=== PATIENT | female | born 1980 | race Asian ===

== ENCOUNTER 2016-05-03 19:15 | Emergency (ER) | payer MEDICAID, OTHER ==
[~2016-05-03] VITALS: Ht 172.7 cm; Wt 79.0 kg
[2016-05-03 19:19] VITALS: Ht 172.7 cm; Wt 79.0 kg
[2016-05-03] MEDS ORDERED: BEN25 PO (19:29)
[2016-05-03] MEDS ORDERED: ACET500C5 PO (19:29)
[2016-05-03] MEDS ORDERED: CETI10CA PO (19:29)
--- NOTE | 2016-05-03 19:37 | ERD ---
ER Documentation Chief Complaint Date/Time DATE: 05/03/16 TIME: 19:35 Chief Complaint nasal congestion,cold symptoms, HERNANDEZ,13 wks HPI 36-year-old female presents here in emergency department for complaints of sneezing nasal congestion and runny nose with clear nasal discharge for the last one week. Patient denies any purulent discharge. Patient denies any fever or chills. Patient has been having on and off headache with this, throbbing pain , for/10 scale, calm anemia symptoms. Patient denies any caution is better wheezing. Patient's approximately 13 weeks , 1 para 2 0. Patient denies any vaginal bleeding abdominal pain flank pain, or any related complaints. She did not take medications of symptoms. ROS All systems reviewed and are negative except as per history of present illness. Medications Home Meds Active Scripts Acetaminophen* (Tylophen*) 500 Mg Capsule, 1 CAP PO Q6H Y for PAIN AND OR ELEVATED TEMP, #20 CAP Prov:INGE LOBO. ESCROW CLERK 05/03/16 Cetirizine Hcl* (Zyrtec*) 10 Mg Capsule, 10 MG PO DAILY, #30 TAB.CHEW Prov:INGE LOBO. ESCROW CLERK 05/03/16 Diphenhydramine Hcl* (Benadryl*) 25 Mg Cap, 25 MG PO Q6 Y for NASAL CONGESTION, #30 TAB Prov:INGE LOBO. ESCROW CLERK 05/03/16 Allergies Allergies: Coded Allergies: No Known Allergy (Unverified , 05/03/16) PMhx/Soc Medical and Surgical Hx: pt denies Medical Hx, pt denies Surgical Hx FmHx Family History: diabetes Physical Exam Vitals Vital Signs Date Time Temp Pulse Resp B/P Pulse Ox O2 Delivery O2 Flow Rate FiO2 05/03/16 19:19 98.2 106 18 118/75 99 Physical Exam GENERAL: The patient is well developed and appropriate for usual state of health, in no apparent distress. CHEST: Clear to auscultation bilaterally. There are no rales, wheezes or rhonchi. HEENT: Atraumatic. Ears: Normal tympanic membrane, no erythema or bulging. No ear canal swelling. No ear discharge. Nose: Pale boggy naris with clear nasal discharge. Throat: oropharynx clear. No tonsillar swelling or tonsillar exudates. No lymphadenopathy. HEART: Regular rate and rhythm. No murmurs, clicks, rubs or gallops. No S3 or S4. ABDOMEN: Soft, nontender and nondistended. Good bowel sounds. No rebound or guarding. No gross peritonitis. No gross organomegaly or masses. No Mancia sign or McBurney point tenderness. BACK: No midline or flank tenderness. EXTREMITIES: Equal pulses bilaterally. There is no peripheral clubbing, cyanosis or edema. No focal swelling or erythema. Full range of motion. Grossly neurovascularly intact. NEURO: Alert and oriented. Cranial nerves 2-12 intact. Motor strength in all 4 extremities with 5/5 strength. Sensation grossly intact. Normal speech and gait. SKIN: There is no apparent rash or petechia. The skin is warm and dry. HEMATOLOGIC AND LYMPHATIC: There is no evidence of excessive bruising or lymphedema. No gross cervical, axillary, or inguinal lymphadenopathy. Procedures/MDM Medical decision making: Patient's symptoms most active consistent with allergic rhinitis, no symptoms of acute bacterial infection at this time. No symptoms of sepsis at this time. No related symptoms at this time. Patient upper spine is hemodynamically stable. Patient was given for Tylenol Zyrtec Benadryl, all safe for , category B, patient is advised to follow-up with primary care doctor in 1-2 days for reevaluation of symptoms. Patient was advised to return to emergency department for any worsening symptoms. Departure Diagnosis: Primary Impression: Allergic rhinitis Allergic rhinitis seasonality: unspecified seasonality Allergic rhinitis trigger: unspecified Qualified Code: J30.9 - Allergic rhinitis, unspecified allergic rhinitis trigger, unspecified rhinitis seasonality Condition: Stable Patient Instructions: Allergic Rhinitis INGE LOBO NP May 03, 2016 19:37
== END 2016-05-03 19:29 | disposition home or self-care (01) ==
LOC: E/R 19:15
DX: O99.511 Diseases of the respiratory system complicating pregnancy, first trimester (principal); J30.9 Allergic rhinitis, unspecified; Z3A.13 13 weeks gestation of pregnancy
CPT/HCPCS: 99283

== ENCOUNTER 2016-09-19 13:33 | Outpatient (CLI) | payer MEDICAID ==
[~2016-09-19] VITALS: Ht 172.7 cm; Wt 92.8 kg
[~2016-09-19 13:33] MED LIST: ACET500C5 PO; BEN25 PO; CETI10CA PO
[2016-09-19 13:44] VITALS: Ht 172.7 cm; Wt 92.8 kg
[2016-09-19 13:45] VITALS: BP 120/70; PULSE 93; RESP 20
[2016-09-19] MEDS ORDERED: PRENAT PO (13:50)
--- NOTE | 2016-09-19 15:57 | RADRPT ---
PROCEDURE: OB ultrasound for biophysical profile CLINICAL INDICATION: Biophysical profile. . TECHNIQUE: Multiple sonographic images of the pelvis were obtained. Transabdominal views are obta ined. COMPARISON: None FINDINGS: Single intrauterine gestation. Presentation: Cephalic. Placenta: Left lateral No evidence of placental abruption. No evidence of placenta previa. Partially visualized bilateral pelviectasis. breathing movement = 2/2 tone = 2/2 motion = 2/2 HARRISON = 2/2 HARRISON = 17.5 cm heart rate: 144 beats per minute IMPRESSION: Single intrauterine gestation. Biophysical profile 11/03 Partially visualized bilateral pelviectasis. Recommend complete anatomic survey for further evaluat ion. RPTAT: AADD .Alejandro Mata MD, Date Time Electronically viewed and signed by .Alejandro Mata MD, on 09/19/2016 15:56 .B/
--- NOTE | 2016-09-19 16:34 | PN ---
Triage Information Date/Time Weeks of Gestation 33+ : 1 Para: 0 Diabetes: gestational Hypertention: none Objective Vital Signs Date Time Temp Pulse Resp B/P Pulse Ox O2 Delivery O2 Flow Rate FiO2 09/19/16 13:45 98.3 93 20 120/70 Room Air Heart Rate: 140's Assessment/Plan NST reactive,BPP 8/8 --->RTH in 2 days for another NST BPP --->precautions discussed with patient VIOLA HURTADO M.D. Sep 19, 2016 16:34
--- NOTE | 2016-09-19 16:53 | TRIAGE ---
OB Triage Datetime Report Generated by CPN: 09/19/2016 16:53 Datetime: 09/19/2016 15:00 Labor Evaluation Frequency: 0 Duration (sec)2399: 0 Heart Rate FHR Baseline Rate: 135 Monitor Mode: External US Variability: Moderate 6-25 bpm Accelerations: 15X15 Decelerations: None Category: Category I Pain Presence: None/Denies Vaginal Exam Membrane Status: Intact Datetime: 09/19/2016 14:02 Time of Arrival: 09/19/2016 13:30 EGA: 33.0 Arrived By: Ambulatory Arrived From: Home Chief Complaint: follow up NST AND BPP FOR GESTATIONAL GDM (DIET CONTROLLED) Movement: Present Contractions: Denies/Absent Rupture of Membranes: Denies Vaginal Bleeding: None Vaginal Discharge: Denies Recent Sexual Intercouse: Denies Abdominal Trauma: Not Applicable Patient Complaints: Other Time Provider Notified: 09/19/2016 16:00 Provider Notified: ABUSELEME Initial Plan: NST, BPP, HARRISON, SEE DR Datetime: 09/19/2016 13:56 Stage of : OB Triage Assessment Type: Triage Maternal Assessment Level of Consciousness: Fully Conscious DTR's/Clonus: DTRs 2+; No Clonus Headache: Denies Blurred Vision: No Respiratory Effort: Unlabored; Regular Rhythm; Equal Expansion Breath Sounds, Left: Clear and Equal Breath Sounds, Right: Clear and Equal Nausea/Vomiting: Denies RUQ Epigastric Pain: Denies Lower Extremities Edema: None Upper Extremities Edema: None Facial Edema: None Temperature Route: Oral Bedside Blood Glucose: 104 (Annotations: post breakfast per pt) Fall Risk Assessment History of Falling: (0) No Secondary Diagnosis: (0) No Ambulatory Aid: (0) Bedrest/Nurse Assist IV Therapy: (0) No Gait: (0) Normal/Bedrest/Immobile Mental Status: (0) Oriented to Own Ability Fall Score: 0 Fall Risk Score Definition: No Risk: No action required Labor Evaluation Frequency: 0 Monitor Mode: External Duration (sec)2399: 0 Resting Tone [place]: Relaxed Contraction Comments: denies uc's Heart Rate FHR Baseline Rate: 130 Monitor Mode: External US Variability: Moderate 6-25 bpm Accelerations: 15X15 Decelerations: None Category: Category I Pain Assessment Pain Scale: 0
== END 2016-09-19 16:35 | disposition home or self-care (01) ==
LOC: L-D 13:33 → OBT 13:33 → L-D 13:34 → OBT 16:35
PROVIDERS: ATTEND Obstetrics & Gynecology
DX: O24.419 Gestational diabetes mellitus in pregnancy, unspecified control (principal); O09.513 Supervision of elderly primigravida, third trimester; Z3A.33 33 weeks gestation of pregnancy
CPT/HCPCS: 76818; Z7500; G0463

== ENCOUNTER 2016-09-26 12:01 | Outpatient (CLI) | payer MEDICAID ==
[~2016-09-26] VITALS: Ht 172.7 cm; Wt 92.2 kg
[~2016-09-26 12:01] MED LIST changes: +PRENAT PO
[2016-09-26 12:13] VITALS: Ht 172.7 cm; Wt 92.2 kg
[2016-09-26] MEDS ORDERED: FER325 PO (12:13)
[2016-09-26] MEDS ORDERED: FOLI-49 PO (12:13)
[2016-09-26 12:14] VITALS: BP 112/76; PULSE 100; RESP 18
--- NOTE | 2016-09-26 13:15 | RADRPT ---
PROCEDURE: OB ultrasound for biophysical profile CLINICAL INDICATION: Poor tone. TECHNIQUE: Multiple sonographic images of the pelvis were obtained. Transabdominal views of the g ravid uterus are available for review. The images were reviewed on a PACS workstation. COMPARISON: None FINDINGS: breathing movement = 2/2 tone = 2/2 motion = 2/2 HARRISON = 2/2 HARRISON = 12.5 cm Single live intrauterine with cardiac activity of 144 bpm. position is cephal ic. The placenta is posterior. IMPRESSION: 1. Single live intrauterine gestation. 2. Biophysical profile = 8/8. 3. HARRISON = 12.5 cm. RPTAT: HH .Sandra Guzman MD, MD Date Time Electronically viewed and signed by .Sandra Guzman MD, on 09/26/2016 13:15 .G/
--- NOTE | 2016-09-26 13:29 | TRIAGE ---
OB Triage Datetime Report Generated by CPN: 09/26/2016 13:29 Datetime: 09/26/2016 13:00 Stage of : OB Triage Maternal Assessment Level of Consciousness: Fully Conscious Labor Evaluation Frequency: NONE NOTED Monitor Mode: External Resting Tone [place]: Relaxed Heart Rate FHR Baseline Rate: 145 Monitor Mode: External US Variability: Moderate 6-25 bpm Accelerations: Prolonged Decelerations: None Category: Category I Pain Assessment Pain Scale: 0 Pain Goal: 0 Vaginal Exam Membrane Status: Intact Vaginal Bleeding: None Datetime: 09/26/2016 12:11 Assessment Type: Triage Maternal Assessment Level of Consciousness: Fully Conscious DTR's/Clonus: DTRs 2+; No Clonus Headache: Denies Blurred Vision: No Respiratory Effort: Unlabored; Regular Rhythm; Equal Expansion Breath Sounds, Left: Clear and Equal Breath Sounds, Right: Clear and Equal Nausea/Vomiting: Denies RUQ Epigastric Pain: Denies Lower Extremities Edema: None Degree: None Upper Extremities Edema: None Degree: None Facial Edema: None Fall Risk Assessment History of Falling: (0) No Secondary Diagnosis: (0) No Ambulatory Aid: (0) Bedrest/Nurse Assist IV Therapy: (0) No Gait: (0) Normal/Bedrest/Immobile Mental Status: (0) Oriented to Own Ability Fall Score: 0 Fall Risk Score Definition: No Risk: No action required Datetime: 09/26/2016 12:10 Time of Arrival: 09/26/2016 11:50 EGA: 34.0 Arrived By: Ambulatory Arrived From: Home Chief Complaint: pt here for nst/bpp for gdm Movement: Present Contractions: Denies/Absent Rupture of Membranes: Denies Vaginal Bleeding: None Vaginal Discharge: Denies Recent Sexual Intercouse: Denies Abdominal Trauma: Not Applicable Patient Complaints: None Time Provider Notified: 09/26/2016 13:20 Provider Notified: BRYANT Initial Plan: NST/BPP Datetime: 09/26/2016 12:07 Monitor Mode: External Monitor Mode: External US Datetime: 09/19/2016 14:02 EGA: 33.0 Datetime: 09/19/2016 13:56 Fall Score: 0 Fall Risk Score Definition: No Risk: No action required
--- NOTE | 2016-09-26 13:29 | PN ---
Triage Information Date/Time Weeks of Gestation 34+wks : 1 Para: 0 Diabetes: gestational Diabetes management: diet controlled Hypertention: none Objective Vital Signs Date Time Temp Pulse Resp B/P Pulse Ox O2 Delivery O2 Flow Rate FiO2 09/26/16 12:14 97.9 100 18 112/76 96 Room Air Exam NST Reactive BPP 11/03 Assessment/Plan precautions discussed Return to Hospital in 2-3 days for NST BPP VIOLA HURTADO M.D. Sep 26, 2016 13:29
== END 2016-09-26 13:39 | disposition home or self-care (01) ==
LOC: L-D 12:01 → OBT 12:01
PROVIDERS: ATTEND Obstetrics & Gynecology
DX: O24.410 Gestational diabetes mellitus in pregnancy, diet controlled (principal); Z3A.34 34 weeks gestation of pregnancy
CPT/HCPCS: 76818; Z7500; G0463

== ENCOUNTER 2016-10-10 12:24 | Outpatient (CLI) | END 2016-10-10 14:45 | disposition home or self-care (01) | DX: O24.410 Gestational diabetes mellitus in pregnancy, diet controlled (principal); Z3A.35 35 weeks gestation of pregnancy | CPT/HCPCS: 76818; Z7500 ==

== ENCOUNTER 2016-10-12 10:44 | Outpatient (CLI) | payer MEDICAID ==
--- NOTE | 2016-10-10 16:01 | PN ---
Triage Information Date/Time Weeks of Gestation 36+ GDM : 1 Para: 0 Diabetes: gestational Diabetes management: diet controlled Objective Heart Rate: 140's Contractions: None Assessment/Plan Reactive NST BPP 11/03 --->Return to hospital in 2 days for another NST BPP -->PO hydration recommended VIOLA HURTADO M.D. Oct 10, 2016 16:01
[~2016-10-12] VITALS: Ht 172.7 cm; Wt 93.2 kg
[~2016-10-12 10:44] MED LIST changes: -ACET500C5 PO; -BEN25 PO; -CETI10CA PO; +FER325 PO; +FOLI-49 PO
[2016-10-12 11:09] VITALS: BP 126/66; PULSE 87; RESP 18; Ht 172.7 cm; Wt 93.2 kg
--- NOTE | 2016-10-12 12:39 | RADRPT ---
PROCEDURE: OB ultrasound for biophysical profile CLINICAL INDICATION: Low amniotic fluid index. TECHNIQUE: Multiple sonographic images of the pelvis were obtained. Transabdominal view of the gr avid uterus are available for review. The images were reviewed on a PACS workstation. COMPARISON: 10/10/2016 FINDINGS: breathing movement = 2/2 tone = 2/2 motion = 2/2 Quantitative amniotic fluid volume = 2/2 HARRISON = 9.8 cm Single live intrauterine with cardiac activity at 137 beats per minute. There is a lateral placenta without previa. IMPRESSION: 1. Single living intrauterine gestation in cephalic position. 2. Biophysical profile = 8/8. 3. HARRISON = 9.8 cm. RPTAT: AACC Physician Tierra Date Time Electronically viewed and signed by Physician Tierra on 10/12/2016 12:39 /
--- NOTE | 2016-10-12 12:57 | TRIAGE ---
OB Triage Datetime Report Generated by CPN: 10/12/2016 12:56 Datetime: 10/12/2016 11:48 Stage of : OB Triage Maternal Assessment Level of Consciousness: Fully Conscious Labor Evaluation Frequency: NONE Monitor Mode: External Resting Tone [place]: Relaxed Heart Rate FHR Baseline Rate: 145 Monitor Mode: External US Variability: Moderate 6-25 bpm Accelerations: 15X15 Decelerations: None Category: Category I Pain Assessment Pain Scale: 0 Pain Goal: 3 Vaginal Exam Membrane Status: Intact Vaginal Bleeding: None Datetime: 10/12/2016 11:07 Assessment Type: Triage Maternal Assessment Level of Consciousness: Fully Conscious DTR's/Clonus: DTRs 2+; No Clonus Headache: Denies Blurred Vision: No Respiratory Effort: Unlabored; Regular Rhythm; Equal Expansion Breath Sounds, Left: Clear and Equal Breath Sounds, Right: Clear and Equal Nausea/Vomiting: Denies RUQ Epigastric Pain: Denies Lower Extremities Edema: None Degree: None Upper Extremities Edema: None Degree: None Facial Edema: None Fall Risk Assessment History of Falling: (0) No Secondary Diagnosis: (0) No Ambulatory Aid: (0) Bedrest/Nurse Assist IV Therapy: (0) No Gait: (0) Normal/Bedrest/Immobile Mental Status: (0) Oriented to Own Ability Fall Score: 0 Fall Risk Score Definition: No Risk: No action required Datetime: 10/12/2016 11:06 Time of Arrival: 10/12/2016 10:41 EGA: 36.2 Arrived By: Ambulatory Arrived From: Home Chief Complaint: pt here for repeat nst/bpp for LOW HARRISON Movement: Present Contractions: Denies/Absent Rupture of Membranes: Denies Vaginal Bleeding: None Vaginal Discharge: Denies Recent Sexual Intercouse: Denies Abdominal Trauma: Not Applicable Patient Complaints: None Time Provider Notified: 10/12/2016 10:45 Provider Notified: ABUSLEME Initial Plan: NST/BPP Datetime: 10/12/2016 11:02 Monitor Mode: External Monitor Mode: External US Datetime: 10/10/2016 12:28 Fall Score: 0 Fall Risk Score Definition: No Risk: No action required Datetime: 10/10/2016 12:27 EGA: 36.0 Datetime: 10/03/2016 11:00 EGA: 35.0 Datetime: 09/26/2016 12:11 Fall Score: 0 Fall Risk Score Definition: No Risk: No action required Datetime: 09/26/2016 12:10 EGA: 34.0 Datetime: 09/19/2016 14:02 EGA: 33.0 Datetime: 09/19/2016 13:56 Fall Score: 0 Fall Risk Score Definition: No Risk: No action required
== END 2016-10-12 13:12 | disposition home or self-care (01) ==
LOC: OBT 10:44 → L-D 10:45 → OBT 13:12
PROVIDERS: ATTEND Obstetrics & Gynecology
DX: O24.419 Gestational diabetes mellitus in pregnancy, unspecified control (principal); Z3A.36 36 weeks gestation of pregnancy
CPT/HCPCS: 76818; Z7500; G0463

== ENCOUNTER 2016-10-17 12:35 | Outpatient (CLI) | payer MEDICAID ==
[~2016-10-17] VITALS: Ht 172.7 cm; Wt 93.3 kg
[2016-10-17 13:05] VITALS: Ht 172.7 cm; Wt 93.3 kg
[2016-10-17 13:06] VITALS: BP 116/72; PULSE 88; RESP 20
--- NOTE | 2016-10-17 13:46 | RADRPT ---
PROCEDURE: US biophysical profile. CLINICAL INDICATION: Low amniotic fluid volume. TECHNIQUE: Multiple sonographic images of the uterus were obtained. The images were revi ewed on a PACS workstation. COMPARISON: No prior studies are available for comparison. FINDINGS: There is a single live intrauterine gestation. heart rate is 137 beats per minute. The position is cephalic. The placenta is left lateral grade 1 with no abruption or previa. The HARRISON is 9.1 cm. (Normal = 5-20 cm.) Breathing Movement: 2 Gross Body Movement: 2 Tone: 2 Qualitative Amniotic Fluid Volume: 2 TOTAL: 8 IMPRESSION: 1. The biophysical score is 8/8. RPTAT: QQ .Andriy Velazquez MD, MD Date Time Electronically viewed and signed by .Andriy Velazquez MD, on 10/17/2016 13:45 .R/
--- NOTE | 2016-10-17 14:30 | PN ---
Triage Information Date/Time Weeks of Gestation 37 weeks of gestation : 1 Para: 0 Diabetes: none Hypertention: none Objective Vital Signs Date Time Temp Pulse Resp B/P Pulse Ox O2 Delivery O2 Flow Rate FiO2 10/17/16 13:06 98.3 88 20 116/72 Room Air Heart Rate: 140's Contractions: None Results/Medications Imaging Results PROCEDURE: US biophysical profile. CLINICAL INDICATION: Low amniotic fluid volume. TECHNIQUE: Multiple sonographic images of the uterus were obtained. The images were reviewed on a PACS workstation. COMPARISON: No prior studies are available for comparison. FINDINGS: There is a single live intrauterine gestation. heart rate is 137 beats per minute. The position is cephalic. The placenta is left lateral grade 1 with no abruption or previa. The HARRISON is 9.1 cm. (Normal = 5-20 cm.) Breathing Movement: 2 Gross Body Movement: 2 Tone: 2 Qualitative Amniotic Fluid Volume: 2 TOTAL: 8 IMPRESSION: 1. The biophysical score is 8/8. RPTAT: QQ .Andriy Velazquez MD, MD Date Time Electronically viewed and signed by .Andriy Velazquez MD, MD on 10/17/2016 13:45 .R/ CC: JESS CA MD Assessment/Plan Patient at 37 weeks of gestation Here for HARRISON check- HARRISON 9 Patient should increase hydration F/U with her OBGYN in 2 days Patient should return next week for repeat HARRISON MICHEAL THOMAS MD Oct 17, 2016 14:30
== END 2016-10-17 14:15 | disposition home or self-care (01) ==
LOC: L-D 12:35 → OBT 12:35
PROVIDERS: ATTEND Obstetrics & Gynecology
DX: Z36 Encounter for antenatal screening of mother (principal)
CPT/HCPCS: 76818; Z7500; G0463

== ENCOUNTER 2016-10-24 13:02 | Outpatient (CLI) | payer MEDICAID ==
--- NOTE | 2016-10-24 13:49 | RADRPT ---
PROCEDURE: US OB biophysical profile. CLINICAL INDICATION: decreased movements, GDM TECHNIQUE: Multiple sonographic images of the pelvis were obtained. The images were reviewed on a PACS workstation. COMPARISON: 10/17 FINDINGS: There is a single viable intrauterine gestation. Cardiac activity is present with 159 beats per min kimo. There is a vertex presentation. The placenta is left lateral. There is no evidence of placental abruption. There is a normal amount of amniotic fluid with an HARRISON = 11.0 cm. Biophysical profile: movement 2/2 tone 2/2. breathing 2/2 HARRISON 2/2 Total 11/03 RPTAT: AA . IMPRESSION: Normal biophysical profile. . .Ethan Andrew MD, MD Date Time Electronically viewed and signed by .Ethan Andrew MD, on 10/24/2016 13:49 .S/
--- NOTE | 2016-10-24 14:41 | PN ---
Triage Information Date/Time Weeks of Gestation Patient is 1 para 0 at 38 weeks of gestation : 1 Para: 0 Hypertention: none Additional information Patient is here for NST and biophysical profile Patient reports positive movement, no vaginal bleeding, no contractions, no leaking fluid Objective Heart Rate: 140's Heart Rate Comments NST is reactive Contractions: None Results/Medications Imaging Results PROCEDURE: US OB biophysical profile. CLINICAL INDICATION: decreased movements, GDM TECHNIQUE: Multiple sonographic images of the pelvis were obtained. The images were reviewed on a PACS workstation. COMPARISON: 10/17 FINDINGS: There is a single viable intrauterine gestation. Cardiac activity is present with 159 beats per minute. There is a vertex presentation. The placenta is left lateral. There is no evidence of placental abruption. There is a normal amount of amniotic fluid with an HARRISON = 11.0 cm. Biophysical profile: movement 2/2 tone 2/2. breathing 2/2 HARRISON 2/2 Total 11/03 RPTAT: AA . IMPRESSION: Normal biophysical profile. . .Ethan Andrew MD, MD Date Time Electronically viewed and signed by .Ethan Andrew MD, MD on 10/24/2016 13: 49 .S/ CC: JESS CA MD Assessment/Plan Patient is a 38 weeks of gestation here for NST and biophysical profile NST is reactive Biophysical profile 8 out of 8 Patient was instructed on kick counts and counseled to increase p.o. hydration Patient scheduled to see her own [employer] REPRESENTATIVE in 2 days She is scheduled to be sectioned on October 30, 2016 MICHEAL THOMAS MD Oct 24, 2016 14:41
--- NOTE | 2016-10-24 15:04 | TRIAGE ---
OB Triage Datetime Report Generated by CPN: 10/24/2016 15:04 Datetime: 10/24/2016 14:25 Labor Evaluation Frequency: NONE Monitor Mode: External Pattern: Normal: <= 5 Contractions in 10 Minutes Resting Tone [place]: Relaxed Contraction Comments: IRRITABILITIES Heart Rate FHR Baseline Rate: 145 Monitor Mode: External US FHR Baseline Changes: No Baseline Change Variability: Moderate 6-25 bpm Accelerations: 15X15 Decelerations: None Category: Category I Pain Assessment Pain Scale: 0 Pain Presence: None/Denies Pain Type: N/A Datetime: 10/24/2016 13:41 Monitor Mode: External US Datetime: 10/24/2016 13:33 Labor Evaluation Frequency: 2-16 Monitor Mode: External Duration (sec)2399: 50-70 Quality: Mild Pattern: Normal: <= 5 Contractions in 10 Minutes Resting Tone [place]: Relaxed Contraction Comments: PT REPORTS THAT SHE DOES NOT FEEL ANY CONTRACTIONS Heart Rate FHR Baseline Rate: 145 FHR Baseline Changes: No Baseline Change Variability: Moderate 6-25 bpm Accelerations: 15X15 Decelerations: Variable Comments: Vx1 Pain Assessment Pain Scale: 0 Pain Presence: None/Denies Pain Type: N/A Datetime: 10/24/2016 13:15 Stage of : OB Triage Assessment Type: Triage Maternal Assessment Level of Consciousness: Fully Conscious DTR's/Clonus: DTRs 2+; No Clonus Headache: Denies Blurred Vision: No Respiratory Effort: Unlabored; Regular Rhythm; Equal Expansion Breath Sounds, Left: Clear and Equal Breath Sounds, Right: Clear and Equal Nausea/Vomiting: Denies RUQ Epigastric Pain: Denies Lower Extremities Edema: None Upper Extremities Edema: None Facial Edema: None Temperature Route: Axillary Fall Risk Assessment History of Falling: (0) No Secondary Diagnosis: (0) No Ambulatory Aid: (0) Bedrest/Nurse Assist IV Therapy: (0) No Gait: (0) Normal/Bedrest/Immobile Mental Status: (0) Oriented to Own Ability Fall Score: 0 Fall Risk Score Definition: No Risk: No action required Pain Assessment Pain Scale: 0 Pain Presence: None/Denies Pain Type: N/A Pain Goal: 3 Datetime: 10/24/2016 13:09 Time of Arrival: 10/24/2016 13:00 EGA: 38.0 Arrived By: Ambulatory Arrived From: Home Chief Complaint: Pt here for repeat NST/BPP for GDM Movement: Present Contractions: Denies/Absent Rupture of Membranes: Denies Vaginal Bleeding: None Recent Sexual Intercouse: Denies Abdominal Trauma: Not Applicable Patient Complaints: None Time Provider Notified: 10/24/2016 14:10 Provider Notified: DR. THOMAS Datetime: 10/17/2016 14:05 Time of Arrival: 10/24/2016 13:00 EGA: 38.0 Arrived By: Ambulatory Arrived From: Home Datetime: 10/17/2016 14:00 Stage of : OB Triage Datetime: 10/17/2016 13:08 Maternal Assessment Level of Consciousness: Fully Conscious DTR's/Clonus: DTRs 1+ Headache: Denies Blurred Vision: No Respiratory Effort: Unlabored Breath Sounds, Left: Clear and Equal Breath Sounds, Right: Clear and Equal Nausea/Vomiting: Denies RUQ Epigastric Pain: Denies Facial Edema: None Labor Evaluation Frequency: 0 Monitor Mode: External Resting Tone [place]: Relaxed Heart Rate FHR Baseline Rate: 135 Monitor Mode: External US FHR Baseline Changes: No Baseline Change Variability: Moderate 6-25 bpm Accelerations: 15X15 Decelerations: None Category: Category I Pain Assessment Pain Scale: 0 Vaginal Exam Membrane Status: Intact Datetime: 10/17/2016 13:01 Time of Arrival: 10/17/2016 12:33 EGA: 37.0 Arrived By: Ambulatory Arrived From: Home Chief Complaint: F/U NST BPP Movement: Present Contractions: Denies/Absent Contractions: 0 Rupture of Membranes: Denies Vaginal Bleeding: None Vaginal Discharge: Denies Abdominal Trauma: Not Applicable Patient Complaints: None Provider Notified: ABUSLEME Initial Plan: NST Datetime: 10/12/2016 11:07 Fall Score: 0 Fall Risk Score Definition: No Risk: No action required Datetime: 10/12/2016 11:06 EGA: 36.2 Datetime: 10/10/2016 12:28 Fall Score: 0 Fall Risk Score Definition: No Risk: No action required Datetime: 10/10/2016 12:27 EGA: 36.0 Datetime: 10/03/2016 11:00 EGA: 35.0 Datetime: 09/26/2016 12:11 Fall Score: 0 Fall Risk Score Definition: No Risk: No action required Datetime: 09/26/2016 12:10 EGA: 34.0 Datetime: 09/19/2016 14:02 EGA: 33.0 Datetime: 09/19/2016 13:56 Fall Score: 0 Fall Risk Score Definition: No Risk: No action required
== END 2016-10-24 14:46 | disposition home or self-care (01) ==
LOC: OBT 13:02 → L-D 13:03 → OBT 14:46
PROVIDERS: ATTEND Obstetrics & Gynecology
DX: O36.8130 Decreased fetal movements, third trimester, not applicable or unspecified (principal); Z3A.38 38 weeks gestation of pregnancy
CPT/HCPCS: 76818

== ENCOUNTER 2016-10-27 16:52 | Outpatient (CLI) | payer MEDICAID ==
[~2016-10-27] VITALS: Ht 172.7 cm; Wt 94.1 kg
[2016-10-27 17:33] VITALS: Ht 172.7 cm; Wt 94.1 kg
[2016-10-27 17:34] VITALS: BP 108/63; PULSE 86; RESP 20
--- NOTE | 2016-10-27 17:59 | RADRPT ---
PROCEDURE: Biophysical profile CLINICAL INDICATION: distress, decreased movements. TECHNIQUE: Color and dobbs-scale ultrasound images of an intrauterine gestation were obtained. COMPARISON: October 24, 2016 FINDINGS: A single live intrauterine gestation is identified in cephalic position with an estimated hear t rate of 131 beats per minute. The placenta is located laterally to the left. The cervix is obscu red by head shadows. No evidence of abruption identified. HARRISON is 11.6 cm. movement 2/2. tone 2/2. breathing movement 2/2. Qualitative AFV 2/2 Total biophysical profile 11/03 IMPRESSION: 11/03 biophysical profile. RPTAT: AA .Nithin Chiang MD, Date Time Electronically viewed and signed by .Nithin Chiang MD, MD on 10/27/2016 17:58 .P/
--- NOTE | 2016-10-27 18:42 | CONS ---
Date/Time of Note Date/Time of Note DATE: 10/27/16 TIME: 18:34 Consultation Date/Type/Reason Admit Date/Time October 27, 2016 OB triage consult Reason for Consultation This patient is 36 years old 1 para 0 with estimated date of confinement of October 30, 2016 which measures 39 weeks and 4 days now. Came to triage complaining of low movement. She had gestational diabetes mellitus with diet-controlled. Her blood glucose fasting was 86 1 and hour after lunch was 114 her lab work during this basically normal blood type B+ hepatitis B surface antigen HIV GBS rubella chlamydia and gonorrhea were all negative Her general vital signs are normal with blood pressure 108/63, pulse rate 86, respiration 18 temp temperature 98.1,,, and oxygen saturation of the blood at room temperature was 97% heart rate currently is around 140 Constitutional: No chills, No diaphoresis, No disoriented, No febrile, No improved, No no complaints, No other, No poor po, No requiring IVF, No requiring O2 Eyes: No discharge, No no complaints, No other, No pain, No redness, No visual change ENT: No bleeding, No congestion, No discharge, No dysphagia, No no complaints, No other, No pain, No sore throat Respiratory: No cough, No no complaints, No other, No pain, No pleuritic pain, No shortness of breath, No sputum, No wheezing Cardiovascular: No chest pain, No edema, No lightheadedness, No no complaints, No orthopenea, No other, No palpitations, No paroxysmal nocturnal dyspnea Gastrointestinal: No blood, No constipation, No decreased appetite, No diarrhea , No flatus, No nausea, No no complaints, No other, No pain, No passing stool, No vomiting Genitourinary: other (She did not have any contractions for this reason the pelvic examination was not performed), No bleeding, No discharge, No dysuria, No flank pain, No hematuria, No no complaints Musculoskeletal: No back pain, No bone/joint pain, No neck pain, No no complaints, No other, No restricted range of motion, No swelling Skin: No bruising, No erythema, No laceration, No no complaints, No other, No pruritis, No rash, No skin lesions Neurologic: No confusion, No dizziness, No focal-weakness, No headache, No no complaints, No other, No seizure, No syncope Endocrine: No dry skin, No no complaints, No other, No polydypsia, No polyuria , No temp intolerance Additional Comments On ultrasound study the report was single live intrauterine gestation in cephalic presentation with heart tone of 131 bpm her amniotic fluid index was 11.6 and the biophysical profile was reported 11/03 Disposition with this positive finding patient was discharged to be seen by Dr. Rosio Cr in her office and she is asked to do the kick count and return in the labor delivery room in case of labor End of dictation Social History Smoking Status: Never smoker Exam/Review of Systems Vital Signs Vitals Vital Signs Date Time Temp Pulse Resp B/P Pulse Ox O2 Delivery O2 Flow Rate FiO2 10/27/16 17:34 98.1 86 20 108/63 97 Room Air DAMON FALK MD Oct 27, 2016 18:42
--- NOTE | 2016-10-27 18:45 | TRIAGE ---
OB Triage Datetime Report Generated by CPN: 10/27/2016 18:44 Datetime: 10/27/2016 18:15 Stage of : OB Triage Datetime: 10/27/2016 18:03 Labor Evaluation Frequency: 0 Monitor Mode: External Duration (sec)2399: 0 Quality: Mild Resting Tone Garden: Relaxed Heart Rate FHR Baseline Rate: 145 Monitor Mode: External US Variability: Moderate 6-25 bpm Accelerations: 15X15 Decelerations: None Category: Category I Comments: nst reactive for gestational age Datetime: 10/27/2016 17:26 Time of Arrival: 10/27/2016 16:49 EGA: 39.4 Arrived By: Ambulatory Arrived From: Home Chief Complaint: DFM Movement: Present Contractions: Denies/Absent Rupture of Membranes: Denies Vaginal Bleeding: None Vaginal Discharge: Denies Recent Sexual Intercouse: Denies Abdominal Trauma: Not Applicable Patient Complaints: Cramping Time Provider Notified: 10/27/2016 18:15 Provider Notified: dr. gomez Initial Plan: NST/ CALL MD Datetime: 10/27/2016 17:25 Assessment Type: Triage Maternal Assessment Level of Consciousness: Fully Conscious DTR's/Clonus: DTRs 2+; No Clonus Headache: Denies Blurred Vision: No Respiratory Effort: Unlabored; Regular Rhythm; Equal Expansion Breath Sounds, Left: Clear and Equal Breath Sounds, Right: Clear and Equal Nausea/Vomiting: Denies RUQ Epigastric Pain: Denies Lower Extremities Edema: Bilateral Lower Extremities Degree: 1+ Upper Extremities Edema: None Degree: None Facial Edema: None Fall Risk Assessment History of Falling: (0) No Secondary Diagnosis: (0) No Ambulatory Aid: (0) Bedrest/Nurse Assist IV Therapy: (0) No Gait: (0) Normal/Bedrest/Immobile Mental Status: (0) Oriented to Own Ability Fall Score: 0 Fall Risk Score Definition: No Risk: No action required Datetime: 10/27/2016 17:00 Stage of : OB Triage Assessment Type: Triage Maternal Assessment Level of Consciousness: Fully Conscious DTR's/Clonus: DTRs 2+; No Clonus Headache: Denies Blurred Vision: No Respiratory Effort: Unlabored; Regular Rhythm; Equal Expansion Breath Sounds, Left: Clear and Equal Breath Sounds, Right: Clear and Equal Nausea/Vomiting: Denies RUQ Epigastric Pain: Denies Lower Extremities Edema: Bilateral Lower Extremities Degree: 2+ Upper Extremities Edema: None Degree: None Facial Edema: None Temperature Route: Axillary Fall Risk Assessment History of Falling: (0) No Secondary Diagnosis: (0) No Ambulatory Aid: (0) Bedrest/Nurse Assist IV Therapy: (0) No Gait: (0) Normal/Bedrest/Immobile Mental Status: (0) Oriented to Own Ability Fall Score: 0 Fall Risk Score Definition: No Risk: No action required Pain Assessment Pain Scale: 3 Pain Presence: Intermittent Pain Type: Cramping Pain Location: Abdomen Pain Goal: 2 Pain Relief Measures: Comfort Measures Datetime: 10/24/2016 13:15 Fall Score: 0 Fall Risk Score Definition: No Risk: No action required Datetime: 10/24/2016 13:09 EGA: 39.1 Datetime: 10/17/2016 14:05 EGA: 39.1 Datetime: 10/17/2016 13:01 EGA: 38.1 Datetime: 10/12/2016 11:07 Fall Score: 0 Fall Risk Score Definition: No Risk: No action required Datetime: 10/12/2016 11:06 EGA: 37.3 Datetime: 10/10/2016 12:28 Fall Score: 0 Fall Risk Score Definition: No Risk: No action required Datetime: 10/10/2016 12:27 EGA: 37.1 Datetime: 10/03/2016 11:00 EGA: 36.1 Datetime: 09/26/2016 12:11 Fall Score: 0 Fall Risk Score Definition: No Risk: No action required Datetime: 09/26/2016 12:10 EGA: 35.1 Datetime: 09/19/2016 14:02 EGA: 34.1 Datetime: 09/19/2016 13:56 Fall Score: 0 Fall Risk Score Definition: No Risk: No action required
== END 2016-10-27 18:28 | disposition home or self-care (01) ==
LOC: OBT 16:52 → L-D 16:53 → OBT 18:28
PROVIDERS: ATTEND Obstetrics & Gynecology
DX: O36.8130 Decreased fetal movements, third trimester, not applicable or unspecified (principal); O24.410 Gestational diabetes mellitus in pregnancy, diet controlled; Z3A.39 39 weeks gestation of pregnancy
CPT/HCPCS: 76818; Z7500; G0463

== ENCOUNTER 2016-10-30 06:08 | Inpatient (IN) | payer MEDICAID ==
[~2016-10-30] VITALS: Ht 172.7 cm; Wt 92.1 kg
[2016-10-30 06:14] VITALS: Ht 172.7 cm; Wt 92.1 kg
[2016-10-30] MEDS ORDERED: CEFAZOLIN 2 GM/50 ML (PMX) 50 ML IV SCH (06:30)
[2016-10-30] MEDS ORDERED: MISOPROSTOL 200 MCG TAB PR PRN ×2 (06:30→09:30)
[2016-10-30] MEDS ORDERED: OXYTOCIN 30 UNITS/LR 500 ML IV SCH (06:30)
[2016-10-30] MEDS ORDERED: CARBOPROST 250 MCG INJ IM PRN ×2 (06:30→09:30)
[2016-10-30] MEDS ORDERED: OXYTOCIN 30 UNITS/LR 500 ML IV PRN ×2 (06:30→09:30)
[2016-10-30] MEDS ORDERED: METHYLERGONOVINE 0.2 MG INJ IM PRN ×2 (06:30→09:30)
[2016-10-30] MEDS ORDERED: LACTATED RINGER'S 1,000 ML IV ONE (06:34)
[2016-10-30 06:40] VITALS: BP 95/54; PULSE 69; RESP 18
[2016-10-30 06:58] LABS: BASOPHILS % 0.4 % (0.0-2.0); EOSINOPHILS # 0.1 10^3/ul (0.0-0.5); EOSINOPHILS % 0.8 % (0.0-7.0); HEMOGLOBIN 12.6 g/dl (12.0-16.0); LYMPHOCYTES % 25.7 % (15.0-51.0); MEAN CORPUSCULAR HEMOGLOBIN 29.3 pg (29.0-33.0); MEAN CORPUSCULAR HGB CONC 34.1 g/dl (32.0-37.0); MEAN PLATELET VOLUME 11.1 fl (7.4-10.4); MONOCYTE # 0.5 10^3/ul (0.3-0.9); MONOCYTES % 5.8 % (0.0-11.0); NEUTROPHIL # 5.3 10^3/ul (1.6-7.5); NEUTROPHILS % 66.9 % (39.0-77.0); PLATELET COUNT 190 10^3/UL (140-415); WHITE BLOOD COUNT 7.9 10^3/ul (4.8-10.8)
[2016-10-30] MEDS ORDERED: CITRIC ACID/NA CITRATE 30 ML CUP PO ONE (07:00)
[2016-10-30] MEDS ORDERED: ONDANSETRON 4 MG INJ IV ONE (07:00)
[2016-10-30] MEDS ORDERED: LACTATED RINGER'S 1,000 ML IV SCH (07:22)
[2016-10-30 07:34] LABS: INR 0.99; PROTIME 13.1 Sec (12.2-14.2)
[2016-10-30 07:35] LABS: PARTIAL THROMBOPLASTIN TIME 30.3 Sec (25.0-35.0)
[2016-10-30] MEDS ORDERED: FENTAnyl 50 MCG/ML VIAL ONE (07:42)
[2016-10-30] MEDS ORDERED: morphine SULFATE/PF (10 MG/10 ML) INJ ONE (07:42)
[2016-10-30] MEDS ORDERED: CEFAZOLIN 1 GM INJ ONE (08:00)
[2016-10-30] MEDS ORDERED: PHENYLephrine (100 MCG/ML) 5ML SYG ONE (08:09)
[2016-10-30] MEDS ORDERED: METOCLOPRAMIDE 10 MG INJ ONE (08:09)
[2016-10-30] MEDS ORDERED: VASOPRESSIN 20 UNITS INJ ONE (08:11)
[2016-10-30] MEDS ORDERED: EPHEDrine SULFATE 50 MG/5 ML SYG ONE (08:53)
[2016-10-30] MEDS ORDERED: TRIMETHOBENZAMIDE 100 MG/ML VIAL IM PRN (09:00)
[2016-10-30] MEDS ORDERED: NALOXONE (0.4 MG/ML) INJ IV PRN (09:00)
[2016-10-30] MEDS ORDERED: NALBUPHINE HCL (10 MG/1 ML) INJ IV PRN (09:00)
[2016-10-30] MEDS ORDERED: DIPHENHYDRAMINE 50 MG INJ IV PRN (09:00)
[2016-10-30] MEDS ORDERED: ONDANSETRON 4 MG INJ IV PRN ×2 (09:00→09:30)
[2016-10-30] MEDS ORDERED: HYDROmorphONE 1 MG/ML SYG IV PRN ×2 (09:00)
[2016-10-30] MEDS ORDERED: KETOROLAC 30 MG INJ IV PRN ×2 (09:00→09:30)
[2016-10-30] MEDS: LACTATED RINGER'S 1,000 ML IV SCH ×2 (09:21→18:48)
[2016-10-30] MEDS ORDERED: ACETAMINOPHEN/CODEINE #3 TAB PO PRN (09:30)
[2016-10-30] MEDS ORDERED: METHYLERGONOVINE 0.2 MG TAB PO PRN (09:30)
[2016-10-30] MEDS ORDERED: NA PHOSPHATE/BIPHOS 133 ML ENEMA PR PRN (09:30)
--- NOTE | 2016-10-30 09:31 | OPR ---
Date/Time of Note Date/Time of Note DATE: 10/30/16 TIME: 09:27 Operative Report Procedure Date: Oct 30, 2016 Preoperative Diagnosis TERM \ TOCOPHOBIA Postoperative Diagnosis SAME ANTERIOR UTERINE MASS Operation Performed PRIMARY LOW SEGMENT TRANSVERSE C/S EXCISION OF UTERINE MASS Surgeon: JESS CA MD assistant men's soccer coach: RANGEL PASCAL MD Anesthesia: spinal Estimated Blood Loss: other Complications: None Pt Condition Post Procedure: stable Disposition: PACU JESS CA MD Oct 30, 2016 09:31
[2016-10-30] MEDS: OXYTOCIN 30 UNITS/LR 500 ML IV SCH ×2 (09:52→14:12)
--- NOTE | 2016-10-30 11:57 | OPR ---
DATE OF OPERATION: 10/30/2016 OPERATION PERFORMED: Primary low segment transverse section and excision of uterine mass. PREOPERATIVE DIAGNOSES: 1. Term . 2. Tocophobia. POSTOPERATIVE DIAGNOSES: 1. Term . 2. Tocophobia. 3. Anterior uterine mass. SURGEON: Dr. Whitney. FEDERAL AID COORDINATOR: Dr. Phillips. ANESTHESIA: Dr. De Guzman, with spinal anesthesia. OPERATIVE PROCEDURE: The patient was given a spinal anesthesia, placed in the supine position. A Reid catheter was placed in the bladder. A transverse incision was made suprapubically over the midline for about 10 cm and then the abdominal cavity was reached. The lower uterine segment was identified. The bladder flap was made. The uterus was opened in the midline with a scalpel and the incision was increased laterally on either side for about 3 inches. The baby was helped to deliver with the help of the vacuum due to the position of the head. The cord was clamped and cut. The baby was handed over to the sprayer operator team with a good . The kit for cord cell preservation from blood and a piece of the cord were preserved for future studies. The cord blood was obtained. The placenta was removed. The uterus was swabbed out and closed in 2 layers using #1 Monocryl continuous suture imbedded in the 1st line of suture. Hemostasis was good. At this point, the uterus was slightly boggy, so we added Methergine and Hemabate it contracted down. The loss at this time had been like 800 cc. There was an anterior uterine mass that was located and it was tied up at the base and then excised. This mass of unknown origin was sent for pathology. There was no bleeding on the surface of the area where it was excised from. The tubes and ovaries were normal. The abdominal cavity was cleaned out and closed in layers using a 2-0 Vicryl suture for peritoneum, #0 PDS loop suture for the fascia, #2-0 Vicryl for the subcutaneous tissue, #3-0 Monocryl subcuticular to the skin. Steri-Strips and Dermabond. The patient tolerated the procedure well and left the OR awake and stable. Sponge counts and instrument counts were correct. Intravenous antibiotics were given for prophylaxis. Blood loss was about 800 cc and the urine was clear at the end of the procedure. Dictated By: Lois Whitney MD /crystal/malika /Document#: [id number]
[2016-10-30 12:00] VITALS: BP 110/74; PULSE 82; RESP 18
[2016-10-30] MEDS: CEFAZOLIN 2 GM/50 ML (PMX) 50 ML IVPB SCH ×2 (14:29→22:29)
[2016-10-30 16:30] VITALS: BP 112/60; PULSE 102; RESP 18
[2016-10-30 19:55] VITALS: BP 106/61; PULSE 88; RESP 19
[2016-10-30] MEDS: SENNA/DOCUSATE NA (8.6MG/50MG) TAB PO SCH (21:05)
[2016-10-31 00:10] VITALS: BP 105/63; PULSE 94; RESP 19
[2016-10-31] MEDS: LACTATED RINGER'S 1,000 ML IV SCH ×3 (03:48→20:37)
[2016-10-31 04:15] VITALS: BP 108/60; PULSE 99; RESP 19
[2016-10-31] MEDS: CEFAZOLIN 2 GM/50 ML (PMX) 50 ML IVPB SCH (06:27)
[2016-10-31 08:00] VITALS: BP 103/58; PULSE 105; RESP 18
[2016-10-31 08:19] LABS: BASOPHILS % 0.2 % (0.0-2.0); EOSINOPHILS # 0.1 10^3/ul (0.0-0.5); EOSINOPHILS % 0.5 % (0.0-7.0); HEMATOCRIT 28.5 % (37.0-47.0); HEMOGLOBIN 9.4 g/dl (12.0-16.0); LYMPHOCYTES # 1.5 10^3/ul (0.8-2.9); LYMPHOCYTES % 15.7 % (15.0-51.0); MEAN CORPUSCULAR HEMOGLOBIN 28.9 pg (29.0-33.0); MEAN CORPUSCULAR VOLUME 87.7 fl (82.0-101.0); MEAN PLATELET VOLUME 10.7 fl (7.4-10.4); MONOCYTE # 0.6 10^3/ul (0.3-0.9); MONOCYTES % 5.9 % (0.0-11.0); NEUTROPHIL # 7.5 10^3/ul (1.6-7.5); NEUTROPHILS % 77.3 % (39.0-77.0); PLATELET COUNT 156 10^3/UL (140-415); RED BLOOD COUNT 3.25 10^6/ul (4.20-5.40); RED CELL DISTRIBUTION WIDTH 14.5 % (11.5-14.5); WHITE BLOOD COUNT 9.7 10^3/ul (4.8-10.8)
[2016-10-31] MEDS: SENNA/DOCUSATE NA (8.6MG/50MG) TAB PO SCH ×2 (09:06→21:46)
[2016-10-31] MEDS: ACETAMINOPHEN/CODEINE #3 TAB PO PRN (11:40)
[2016-10-31] MEDS: LANOLIN 7 GM TUBE TOP PRN (11:40)
[2016-10-31] MEDS: IBUPROFEN 800 MG TAB PO SCH ×2 (13:33→21:46)
[2016-10-31 16:00] VITALS: BP 102/67; PULSE 114; RESP 18
[2016-10-31 19:30] VITALS: BP 118/78; PULSE 99; RESP 18
--- NOTE | 2016-10-31 20:58 | PN ---
Date/Time of Note Date/Time of Note DATE: 10/31/16 TIME: 20:56 OB Subjective Subjective Subjective NO FLATUS YET AMBULATING OK OB Objective Objective Objective VSS AFEBRILE ABDOMEN WOUND DRY CALF NEG FOR TENDERNESS LOCHIA MOD HEENT: WNL Heart: Rhythm Normal Lungs: Clear, Equal Abdomen: WNL Extremities: Normal Reflexes: Normal OB Assessment/Plan Other Assessment: STABLE POST C/S #1 Other plan: ORDERED RANGEL PASCAL MD Oct 31, 2016 20:58
[2016-11-01] MEDS: LACTATED RINGER'S 1,000 ML IV SCH ×3 (03:04→19:21)
[2016-11-01 03:50] VITALS: BP 107/56; PULSE 89; RESP 19
[2016-11-01] MEDS: IBUPROFEN 800 MG TAB PO SCH ×3 (05:40→21:52)
[2016-11-01 08:00] VITALS: BP 98/67; PULSE 86; RESP 18
[2016-11-01] MEDS: SENNA/DOCUSATE NA (8.6MG/50MG) TAB PO SCH ×2 (08:20→21:52)
[2016-11-01] MEDS: ACETAMINOPHEN/CODEINE #3 TAB PO PRN ×2 (08:21→12:58)
--- NOTE | 2016-11-01 09:38 | PN ---
Date/Time of Note Date/Time of Note DATE: 11/01/16 TIME: 09:36 OB Subjective Subjective Subjective wants to have baby circumcised no b.m yet OB Objective Objective Objective vss afebrile abdomen soft wound dry lochia min ext neg for tenderness HEENT: WNL Heart: Rhythm Normal Lungs: Clear, Equal Abdomen: WNL Extremities: Normal Reflexes: Normal OB Assessment/Plan Other Assessment: stable s/p Primary c/s#2 Other plan: as ordered RANGEL PASCAL MD Nov 01, 2016 09:38
[2016-11-01 16:00] VITALS: BP 113/67; PULSE 89; RESP 18
[2016-11-01 19:58] VITALS: BP 114/72; PULSE 97; RESP 19
[2016-11-02 03:50] VITALS: BP 104/82; RESP 19
[2016-11-02] MEDS: IBUPROFEN 800 MG TAB PO SCH ×3 (05:51→21:31)
[2016-11-02 08:00] VITALS: BP 107/66; PULSE 79; RESP 18
[2016-11-02] MEDS ORDERED: DIPHTH/TET/ACEL PERTUSS (ADULT) 0.5 ML VIAL IM* ONE (09:00)
[2016-11-02] MEDS: SENNA/DOCUSATE NA (8.6MG/50MG) TAB PO SCH ×2 (09:05→21:31)
--- NOTE | 2016-11-02 14:23 | QN ---
Documentation Comment pod3 pt doing well vss exam wnl wound CDI a/p pod 3 with pain in lower abd continue inpatient and care JORGITO BOSE MD Nov 02, 2016 14:23
[2016-11-02] MEDS: LANOLIN 7 GM TUBE TOP PRN (15:08)
[2016-11-02 16:00] VITALS: BP 111/64; PULSE 89; RESP 18
[2016-11-02 20:20] VITALS: PULSE 79; RESP 18
[2016-11-03 04:30] VITALS: BP 116/60; PULSE 76; RESP 18
[2016-11-03] MEDS: IBUPROFEN 800 MG TAB PO SCH (06:07)
[2016-11-03 07:40] VITALS: BP 111/69; PULSE 89; RESP 19
[2016-11-03] MEDS: SENNA/DOCUSATE NA (8.6MG/50MG) TAB PO SCH (08:42)
[2016-11-03] MEDS ORDERED: DIPHTH/TET/ACEL PERTUSS (ADULT) 0.5 ML VIAL IM* ONE (12:30)
--- NOTE | 2016-11-05 07:11 | PREOPHP ---
DATE OF ADMISSION: 10/30/2016 HISTORY OF PRESENT ILLNESS: This is a 36-year-old female, 1, para 0, with an EDC of 11/07/2016 and last period of 02/03/2016. This patient has come in to my service for care in early . She had an uneventful with GBM that was treated with diet alone. She has been controlled, and she has been seen by perinatologist as well. She has, in the last few weeks, been checked for NSTs and BPPs, within the normal limits. The patient has been scheduled for a primary section due to tocophobia. She has being counseled with the possible risks and possible complications of the section versus a vaginal delivery, and she had still agreed to go ahead with section. PAST MEDICAL HISTORY: Renal plasty. The patient otherwise has no surgical antecedent, no medical antecedent. ALLERGIES: SHE HAS NO ALLERGIES. SOCIAL HISTORY: She does not drink. She does not have a history of smoking, alcohol drinking or drug addiction. FAMILY HISTORY: Diabetes and colon cancer. PHYSICAL EXAMINATION: VITAL SIGNS: The patient is 5 ft 8 inches. She weighs 207. Her start weight was 172. Her blood pressure is normal with 110/70. Pulse is 80, respirations 16. HEAD AND NECK: Normal. CHEST: Clear. HEART: Normal sinus rhythm. LUNGS: Clear. BREASTS: Soft, nontender, no masses. ABDOMEN: Soft, nontender, no masses. Uterus at term. Cephalic presentation. heart tones are normal. PELVIC: Examination with a closed long cervix. Cephalic presentation. EXTREMITIES: Normal with normal pulses and no edema. DIAGNOSIS: 1. Term . 2. Gestational diabetes, diet controlled, A1. 3. Tocophobia. PLAN: She is undergoing a primary section. She has been advised of the possible risks and possible complications of the procedure with her alternatives and options. Written information was provided. She had no more questions, and agreed to go ahead with the procedure, with full understanding and no more questions. Dictated By: Lois Whitney MD /crystal/ec /Document#: [id number]
== END 2016-11-03 13:10 | disposition home or self-care (01) | DRG 766 ==
LOC: L-D 06:08 → PP1 12:02
PROVIDERS: ADMIT Obstetrics & Gynecology; ATTEND Obstetrics & Gynecology
PROC: 10D00Z1 Extraction of Products of Conception, Low, Open Approach (ICD-10-PCS; principal; 2016-10-30 07:30)
PROC: 3E00X4Z Introduction of Serum, Toxoid and Vaccine into Skin and Mucous Membranes, External Approach (ICD-10-PCS; 2016-11-03)
DX: O24.429 Gestational diabetes mellitus in childbirth, unspecified control (principal); O34.593 Maternal care for other abnormalities of gravid uterus, third trimester; D49.59 Neoplasm of unspecified behavior of other genitourinary organ; Z23 Encounter for immunization; Z37.0 Single live birth; Z3A.38 38 weeks gestation of pregnancy
CPT/HCPCS: 82947; 85025; 85610; 85730; 86592; 86850; 86900; 86901; 87340; 88307; 90715; 94760; 99464; J0690; J1200; J2210; J2274; J2370; J2405; J2590; J2765; J3010; J7120

== ENCOUNTER 2018-10-04 08:10 | Day surgery (SDC) | payer BC, MEDICAID ==
[~2018-10-04] VITALS: Ht 170.2 cm; Wt 79.5 kg
[~2018-10-04 08:10] MED LIST changes: -FER325 PO; -FOLI-49 PO
[2018-10-04 09:02] VITALS: Ht 170.2 cm; Wt 79.5 kg
[2018-10-04 10:01] VITALS: BP 123/80; PULSE 90; RESP 18
--- NOTE | 2018-10-04 10:11 | PREAC ---
Date/Time of Note Date/Time of Note DATE: 10/04/18 TIME: 10:10 Anesthesia Eval and Record Evaluation Time Pre-Procedure Interview DATE: 10/04/18 TIME: 10:10 Age 38 Sex female NPO: 8 hrs Preoperative diagnosis rectal bleeding Planned procedure colonoscopy Past Medical History Past Medical History: None Surgery & Anesthesia Issues No known issue Meds Anticoagulation: No Beta Lito within 24 hr: No Reason Beta Lito not given: Pt. not on B-Lito Reported Medications [None] No Conflict Check 10/04/18 Discontinued Reported Medications Multivit/Min/Fol Ac/Iron/Pren* ( S*) 1 Tab Tab, 1 TAB PO DAILY, TAB 09/19/16 Meds reviewed: Yes Allergies Coded Allergies: No Known Allergy (Unverified , 10/30/16) Allergies Reviewed: Yes Labs/Studies Labs Reviewed: Reviewed by anesthesiologist test: Negative Pre-procedure Exam Last vitals Vital Signs Date Temp Pulse Resp B/P (MAP) Pulse Ox O2 O2 Flow FiO2 Time Delivery Rate 10/04/18 97.9 90 18 123/80 98 Room Air 10:01 (94) Airway: Adequate mouth opening, Adequate thyromental dist Mallampati: Mallampati III Teeth: Normal Lung: Normal Heart: Normal ASA Physical Status ASA physical status: 1 Emergency: None Pre-operative Attestations Prior to commencing anesthesia and surgery, the patient was re-evaluated, there was verification of: *The patient's identity *The results of appropriate recent lab work and preoperative vital signs *The above evaluation not changing prior to induction *Anesthetic plan, risk benefits, alternative and complications discussed with patient/family; questions answered; patient/family understands, accepts and wishes to proceed. CYNTHIA GARRETT DO Oct 04, 2018 10:11
[2018-10-04] MEDS ORDERED: PROPOFOL 40 ML ONE (10:12)
[2018-10-04] MEDS ORDERED: LIDOCAINE 2% (SDV) 5 ML INJ ONE (10:12)
[2018-10-04] MEDS ORDERED: FENTAnyl 50 MCG/ML VIAL ONE (10:12)
[2018-10-04] MEDS ORDERED: MIDAZOLAM 1 MG/ML 2 ML INJ ONE (10:12)
--- NOTE | 2018-10-04 11:06 | PAC ---
Date/Time of Note Date/Time of Note DATE: 10/04/18 TIME: 11:05 Post-Anesthesia Notes Post-Anesthesia Note Last documented vital signs Vital Signs Date Temp Pulse Resp B/P (MAP) Pulse Ox O2 O2 Flow FiO2 Time Delivery Rate 10/04/18 98 75 18 105/59 98 1105 Activity: WNL Respiratory function: WNL Cardiovascular function: WNL Mental status: Baseline Pain reasonably controlled: Yes Hydration appropriate: Yes Nausea/Vomiting absent: Yes CYNTHIA GARRETT DO Oct 04, 2018 11:06
[2018-10-04 11:25] VITALS: BP 108/68; PULSE 88
--- NOTE | 2018-10-04 21:13 | CONS ---
DATE OF ADMISSION: 10/04/2018 DATE OF CONSULTATION: PATIENT NAME: MICHEAL LIMA TYPE OF CONSULTATION: Preoperative gastroenterology. Dear Dr. Ramsay: I thank you very much for this kind referral. HISTORY OF PRESENT ILLNESS: Ms. Micheal Cash is a 38-year-old female patient who has been referred to me for further evaluation of change in the bowel habit with episodes of diarrhea and rec joey bleeding. No past history of colon neoplasm or inflammatory bowel disease. The patient never lopez d screening colonoscopy. Appetite is good. No weight loss. The patient has lower abdominal pain. No upper abdominal pain. Not on nonsteroidal anti-inflammatory agents. No history of gallstones or liver disease. Not a hypertensive or diabetic. No heart disease, lung problem or kidney disease. S tatus post section. SOCIAL HISTORY: Nonsmoker. No alcohol abuse. FAMILY HISTORY: The patient's father had colon cancer. ALLERGIES: NO KNOWN DRUG ALLERGIES. MEDICATIONS: None. PHYSICAL EXAMINATION: VITAL SIGNS: She is 5 feet, 8 inches tall and weighs 171 pounds. HEART: Normal heart sounds. LUNGS: Clear. ABDOMEN: Soft. No masses. Normal bowel sounds. NEUROLOGIC: Normal. RECTAL: Deferred per the patient's request. It will be done at the time of colonoscopy. IMPRESSION: 1. Change in the bowel habit with episodes of diarrhea. 2. Rectal bleeding. 3. The patient never had screening colonoscopy. 4. Family history of colon cancer. 5. Lower abdominal pain. 6. Status post section. PLAN: Colonoscopy for further evaluation. The procedure and possible complications are well explained to the patient. She understands and cons ents to the procedure. I thank you once again. With warmest personal regards, Dictated By: ALONSO BAILEY/TRACEY Conf#: [id number] DID#: [id number]
== END 2018-10-04 17:43 | disposition home or self-care (01) ==
LOC: GIL 08:10
PROVIDERS: ATTEND Internal Medicine Gastroenterology
DX: C18.7 Malignant neoplasm of sigmoid colon (principal); K64.8 Other hemorrhoids
CPT/HCPCS: 45380; 84703; 88305; J2250; J3010; Z7610

== ENCOUNTER 2018-10-05 11:53 | Inpatient (IN) | payer BC ==
[~2018-10-05] VITALS: Ht 170.2 cm; Wt 81.9 kg
[2018-10-05] MEDS ORDERED: morphine 2 MG INJ IV STA (12:48)
[2018-10-05] MEDS ORDERED: ONDANSETRON 4 MG INJ IV STA ×2 (12:48→19:37)
[2018-10-05] MEDS ORDERED: SOD CHLORIDE 0.9% 1,000 ML IV STA (12:48)
--- NOTE | 2018-10-05 13:11 | ERD ---
ER Documentation Chief Complaint Chief Complaint S/P COLONOSCOPY YESTERDAY,TODAY WITH AP AND RECTAL BLEEDING HPI This is a 38-year-old female who presents to ED with complaints of rectal bleeding status post having colonoscopy performed yesterday. Patient states that over the past couple months she had some bleeding / mucous with bowel movements. Patient states that she followed up with GI specialist Dr. Alberto Espinoza regarding the rectal bleeding and had a colonoscopy performed yesterday. During colonoscopy patient had a biopsy performed of mass in colon. Patient states that after the colonoscopy she started to experience some painful rectal bleeding as well as lower abdominal pain, more that what she was experiencing prior to the procedure. Patient states that the lower abdominal pain comes and goes and at its worst she rates it at a 10 out of 10 pain. Denies fever, chills, nausea, vomiting, diarrhea, constipation, melena, chest pain, shortness of breath, trouble breathing, lightheadedness, dizziness. ROS All systems reviewed and are negative except as per history of present illness. Medications Home Meds Reported Medications [None] No Conflict Check 10/04/18 Discontinued Reported Medications Multivit/Min/Fol Ac/Iron/Pren* ( S*) 1 Tab Tab, 1 TAB PO DAILY, TAB 09/19/16 Allergies Allergies: Coded Allergies: No Known Allergy (Unverified , 10/05/18) PMhx/Soc History of Surgery: Yes (C SECTION) Anesthesia Reaction: No Hx Neurological Disorder: No Hx Respiratory Disorders: No Hx Cardiac Disorders: No Hx Psychiatric Problems: No Hx Miscellaneous Medical Probl: No Hx Alcohol Use: No Hx Substance Use: No Hx Tobacco Use: No Smoking Status: Never smoker FmHx Family History: No diabetes Physical Exam Vitals Vital Signs Date Temp Pulse Resp B/P (MAP) Pulse Ox O2 O2 Flow FiO2 Time Delivery Rate 10/05/18 98.0 99 18 119/74 99 11:56 (89) Physical Exam Physical Exam Vitals signs: Reviewed by me. General: Well developed, well nourished, in mild distress. Patient is awake and alert. Head: Normocephalic, atraumatic. Eyes: Normal conjunctiva, Pupils PERRLA, EOM intact grossly ENT: Pharynx is clear, Moist mucous membranes, external ears, nose and mouth normal Neck: Supple, no masses, lymphadenopathy or JVD Respiratory: Clear to auscultation bilaterally with no wheezing, rhonchi, rales, no distress Cardiovascular: RRR, no murmurs, rubs, or gallops Abdominal: Soft, nondistended, no peritoneal signs, no rigidity, no surgical ab domen, bowel sounds present all 4 quadrants, mild tenderness palpation in lower abdomen, nontender in all other areas, no rebound tenderness, Mancia sign negative : Deferred MSK: No edema, no unilateral swelling, 5/5 strength Back: No midline tenderness. No flank tenderness Neurologic: Alert and oriented, moving all extremities, normal speech, no focal weakness, no cerebellar signs. Normal mentation Skin: warm and dry, No rash Psych: Normal mood Result Diagram: 10/05/18 1317 10/05/18 1316 Results 24 hrs Laboratory Tests Test 10/05/18 13:14 10/05/18 13:16 10/05/18 13:17 POC Beta HCG, Qualitative NEGATIVE Prothrombin Time 14.2 Sec Prothrombin Time Ratio 1.1 INR International 1.09 Normalized Ratio Activated Partial Thromboplast 33.5 Sec Time Sodium Level 145 mmol/L Potassium Level 3.4 mmol/L Chloride Level 111 mmol/L Carbon Dioxide Level 27 mmol/L Anion Gap 7 Blood Urea Nitrogen 8 mg/dl Creatinine 0.70 mg/dl Est Glomerular Filtrat > 60 mL/min Rate mL/min Glucose Level 100 mg/dl Calcium Level 9.3 mg/dl Total Bilirubin 0.5 mg/dl Direct Bilirubin 0.00 mg/dl Indirect Bilirubin 0.5 mg/dl Aspartate Amino Transf (AST/SGOT) 17 IU/L Alanine 22 IU/L Aminotransferase (ALT/SGPT) Alkaline Phosphatase 64 IU/L Total Protein 6.8 g/dl Albumin 3.6 g/dl Globulin 3.20 g/dl Albumin/Globulin Ratio 1.12 Lipase 78 U/L White Blood Count 9.7 10^3/ul Red Blood Count 4.26 10^6/ul Hemoglobin 11.5 g/dl Hematocrit 35.8 % Mean Corpuscular Volume 84.0 fl Mean Corpuscular Hemoglobin 27.0 pg Mean Corpuscular 32.1 g/dl Hemoglobin Concent Red Cell Distribution Width 13.2 % Platelet Count 258 10^3/UL Mean Platelet Volume 9.7 fl Immature Granulocytes % 0.200 % Neutrophils % 74.8 % Lymphocytes % 16.4 % Monocytes % 6.9 % Eosinophils % 1.3 % Basophils % 0.4 % Nucleated Red Blood Cells % 0.0 /100WBC Immature Granulocytes # 0.020 10^3/ul Neutrophils # 7.2 10^3/ul Lymphocytes # 1.6 10^3/ul Monocytes # 0.7 10^3/ul Eosinophils # 0.1 10^3/ul Basophils # 0.0 10^3/ul Nucleated Red Blood Cells # 0.0 10^3/ul Urine Color YELLOW Urine Clarity CLOUDY Urine pH 5.0 Urine Specific [place] 1.015 Urine Ketones TRACE mg/dL Urine Nitrite NEGATIVE mg/dL Urine Bilirubin NEGATIVE mg/dL Urine Urobilinogen NEGATIVE mg/dL Urine Leukocyte Esterase NEGATIVE Kyle/ul Urine Microscopic RBC 4 /HPF Urine Microscopic WBC 5 /HPF Urine Squamous Epithelial Cells FEW /HPF Urine Bacteria FEW /HPF Urine Mucus FEW /HPF Urine Hemoglobin 2+ mg/dL Urine Glucose NEGATIVE mg/dL Urine Total Protein NEGATIVE mg/dl Current Medications Medications Dose Sig/Rosana Start Time Status Last (Trade) Ordered Route PRN Stop Time Admin Dose Reason Admin Sodium 1,000 ml @ Q1H STAT 10/05/18 DC 10/05/18 Chloride 1,000 mls/hr IV 12:48 13:23 10/05/18 13:47 Morphine 4 mg ONCE STAT 10/05/18 DC 10/05/18 Sulfate IV 12:48 13:23 (morphine) 10/05/18 12:51 Ondansetron 4 mg ONCE STAT 10/05/18 DC 10/05/18 HCl (Zofran IV 12:48 13:22 Inj) 10/05/18 12:51 IV Flush 10 ml STK-MED 10/05/18 DC 10/05/18 (NS 10 ml) ONCE .ROUTE 14:43 15:06 10/05/18 14:44 Sodium 100 ml @ ud STK-MED 10/05/18 DC 10/05/18 Chloride ONCE .ROUTE 14:43 15:06 10/05/18 14:44 Iohexol 150 ml STK-MED 10/05/18 DC 10/05/18 (Omnipaque ONCE .ROUTE 14:43 15:06 300mg/ ml) 10/05/18 14:44 Procedures/MDM EKG, MONITORS, & DIAGNOSTIC IMAGING: [place] [id number] Radiology Main Line: [phone] DIAGNOSTIC IMAGING REPORT Patient: MICHEAL RIDLEY : 1980 Age: 38 Sex: F [id number] DOS: 10/05/18 1248 Ordering MD: LOBO BIGGS PA-C Location: [facility] Room/Bed: PROCEDURE: CT abdomen and pelvis with contrast. CLINICAL INDICATION: Pain after colonoscopy TECHNIQUE: CT scan of the abdomen and pelvis with contrast was performed on a multi-slice CT scanner . The patient was scanned after administration of 85 cc of Omnipaque-300 intravenous contrast. Sagittal and coronal reformatted im ages were obtained from the axial source images. One or more of the following dose reduction techniques were used: - Automated exposure control. - Adjustment of the mA and/or kV according to patient size. - Use of iterative reconstruction technique. DICOM images are available DLP 761.3 mGycm. CTDIvol 13.6 mGy COMPARISON: None. FINDINGS: Lower thorax:The lung bases are clear. Liver: There is diffuse mild to moderately heterogeneous enhancement of the liver with several scattered punctate foci of hypo enhancement not fully characterized. The portal vein is intact without thrombus. Biliary: The gallbladder is unremarkable without inflammation. No biliary dilatation. Pancreas: Homogeneous density and enhancement of the pancreas without visible focal lesion or cystic abnormality. There is no pancreatic ductal dilatation. Spleen: Unremarkable without enlargement or focal lesion. Adrenal Glands: The adrenal glands are within normal limits without mass. Urinary: The kidneys are symmetric in size bilaterally with symmetric enhancement. There are no visible renal or ureteral stones. There is no hydronephrosis. Gastrointestinal: There is an intussusception seen involving the distal sigmoid colon extending into the rectum. The length of the intussusception measures approximately 14 cm and there is an area of localized soft tissue thickening and lobular enhancing measuring 4 cm which could represent a lead point mass. There is approximately fecal filled colon present without evidence of a complete bowel obstruction. The appendix is unremarkable. Fat stranding is seen around the rectum in the area of the intussusception. Lymph nodes: Borderline enlarged lymph nodes are seen in the lower mesentery and in the denita colonic fat involving the intussusceptum portion. The largest lymph node measures 1.3 x 0.8 cm on series 3, image 132. Vascular: The aorta is unremarkable. Peritoneum/mesentery: There is trace fluid in the pelvis. There is no evidence of free air. Reproductive organs: The uterus and adnexal structures are grossly within normal limits. Musculoskeletal: Degenerative changes are seen in the lumbar spine with no ac kimo osseous abnormality Other: None IMPRESSION: Distal colonic intussusception is seen with telescoping of the distal sigmoid colon into the rectum with a suspected mass of the lead point. The mass measures up to 4 cm with approximately 14 cm in length of telescoping of the intussusception. Denita rectal mildly prominent lymph nodes are seen which are indeterminate and this could represent colonic neoplasm. There are inflammatory changes seen around the rectum in the area of intussus ception without a complete obstruction. There is approximately fecal filled colon and the appendix is unremarkable. Heterogeneous enhancement of the liver is seen with numerous foci of punctate hypo enhancement not fully characterize and this can be correlated with MRI of the liver with contrast. RPTAT: AA .Anshul Ren MD, Date Time Electronically viewed and signed by .Anshul Ren MD, MD on 10/05/2018 15:29 .J/ CC: LOBO BIGGS PA-C [id number] LAB INTERPRETATION: CBC shows mild anemia with hemoglobin of 11.5, hematocrit 35.8, no increased WBC Chemistry shows no evidence of significant electrolyte abnormalities or renal insufficiency Liver function test shows no evidence of acute biliary or hepatic dysfunction Coagulation study showed no concerning coagulopathy Lipase shows no evidence of acute pancreatitis Urine negative Urinalysis shows few bacteria, 5 WBCs, 4 RBCs but no leukocyte esterase no nitrite ER COURSE: The patient was given morphine, IV normal saline and Zofran The medication was well tolerated and the patient reports improvement in symptoms. The patient was stable throughout ED course. I kept the patient and/or family informed of laboratory and diagnostic imaging results throughout the emergency room course. The patient was promptly evaluated and a treatment plan was devised based on H&P and other data. This plan was discussed with the patient who agreed and had no further questions or concerns prior to discharge. MEDICAL DECISION MAKING: This is a 38-year-old female with a nonsignificant past medical history presents ED with complaints of rectal bleeding status post having colonoscopy performed yesterday. Patient states that over the past couple months she had some bleeding / mucous with bowel movements. Patient states that she followed up with GI specialist Dr. Alberto Espinoza regarding the rectal bleeding and had a colonoscopy performed yesterday. During colonoscopy patient had a biopsy performed of colonic tissue. Patient states that after the colonoscopy she started to experience some painful rectal bleeding as well as lower abdominal pain, more that what she was experiencing prior to the procedure. Given that patient recently had colonoscopy performed yesterday I proceeded with ordering a CT of the abdomen and pelvis with IV contrast to rule out bowel perforation. CT of the abdomen and pelvis shows Distal colonic intussusception is seen with telescoping of the distal sigmoid colon into the rectum with a suspected mass of the lead point. The mass measures up to 4 cm with approximately 14 cm in length of telescoping of the intussusception. Denita rectal mildly prominent lymph nodes are seen which are indeterminate and this could represent colonic neoplasm. patient will be admitted to hospital for possible barium enema and further treatment of distal colonic intussusception. Discussed the findings with patient as well as mass seen on CT with contrast. Pain was well controlled emergency department. Also discussed case and findings with my overseeing physician Dr. Geronimo who will be facilitating admission of patient into hospital. Departure Diagnosis: Primary Impression: Intussusception Additional Impressions: Mass of colon Abdominal pain Abdominal location: lower abdomen, unspecified Qualified Codes: R10.30 - Lower abdominal pain, unspecified Rectal bleeding Condition: Serious LOBO BIGGS PA-C Oct 05, 2018 13:11
[2018-10-05] MEDS ORDERED: SOD CHLORIDE 0.9% 100 ML ONE (14:43)
[2018-10-05] MEDS ORDERED: IOHEXOL 300MG/ML 150 ML BTL ONE (14:43)
[2018-10-05] MEDS ORDERED: morphine 4 MG/ML VIAL IV STA (19:37)
[2018-10-05] MEDS ORDERED: SOD CHLORIDE 0.9% 1,000 ML IV SCH (21:09)
--- NOTE | 2018-10-05 21:25 | ERD ---
ER Documentation Chief Complaint Chief Complaint S/P COLONOSCOPY YESTERDAY,TODAY WITH AP AND RECTAL BLEEDING HPI This is a 38-year-old female with a past medical history of a in the past who is presenting today with rectal bleeding. The patient endorses having rectal bleeding with mucus in her stools for the last several months. She had a colonoscopy performed yesterday with Dr. Espinoza, who ultimately biopsied a rect al mass. The patient returns today with worsening rectal bleeding with mucus in her bowel movements as well as significant sharp pressure-like elda pain and left lower quadrant abdominal pain. She rates it as 10 out of 10. She does not endorse any constipation. She does not endorse any dysuria or hematuria or urgency or frequency. She does not endorse any vaginal bleeding or burning or discharge or pain. She does not believe she could be . She does not endorse any possibility of having a sexually transmitted infection. She denies any nausea or vomiting. The patient denies fever or chills. The patient has had no headache or vision changes. The patient does not endorse neck or back pain. The patient denies lightheadedness or dizziness. The patient has had no chest pain or trouble breathing. The patient has had no focal deficits. The patient has had no weakness or numbness or tingling to the face or extremities. ROS All systems reviewed and are negative except as per history of present illness. Medications Home Meds Discontinued Reported Medications [None] No Conflict Check 10/04/18 Multivit/Min/Fol Ac/Iron/Pren* ( S*) 1 Tab Tab, 1 TAB PO DAILY, TAB 09/19/16 Allergies Allergies: Coded Allergies: No Known Allergy (Unverified , 10/05/18) PMhx/Soc History of Surgery: Yes (C SECTION) Anesthesia Reaction: No Hx Neurological Disorder: No Hx Respiratory Disorders: No Hx Cardiac Disorders: No Hx Psychiatric Problems: No Hx Miscellaneous Medical Probl: No Hx Alcohol Use: No Hx Substance Use: No Hx Tobacco Use: No Smoking Status: Never smoker FmHx Family History: No diabetes Physical Exam Vitals Vital Signs Date Temp Pulse Resp B/P (MAP) Pulse Ox O2 O2 Flow FiO2 Time Delivery Rate 10/05/18 76 20 107/70 99 Room Air 20:20 (82) 10/05/18 79 20 104/71 99 Room Air 19:03 (82) 10/05/18 73 20 101/72 99 Room Air 17:19 (82) 10/05/18 98.0 99 18 119/74 99 11:56 (89) Physical Exam Const: No acute distress Head: Atraumatic Eyes: Normal Conjunctiva ENT: Normal External Ears, Nose and Mouth. Neck: Full range of motion. No meningismus. Resp: Clear to auscultation bilaterally Cardio: Regular rate and rhythm, no murmurs Abd: Soft, non distended. Left lower quadrant abdominal pain. Normal bowel sounds Skin: No petechiae or rashes Back: No midline or flank tenderness Ext: No cyanosis, or edema Neur: Awake and alert Psych: Normal Mood and Affect Result Diagram: 10/05/18 1317 10/05/18 1316 Results 24 hrs Laboratory Tests Test 10/05/18 13:14 10/05/18 13:16 10/05/18 13:17 POC Beta HCG, Qualitative NEGATIVE Prothrombin Time 14.2 Sec Prothrombin Time Ratio 1.1 INR International 1.09 Normalized Ratio Activated Partial Thromboplast 33.5 Sec Time Sodium Level 145 mmol/L Potassium Level 3.4 mmol/L Chloride Level 111 mmol/L Carbon Dioxide Level 27 mmol/L Anion Gap 7 Blood Urea Nitrogen 8 mg/dl Creatinine 0.70 mg/dl Est Glomerular Filtrat > 60 mL/min Rate mL/min Glucose Level 100 mg/dl Calcium Level 9.3 mg/dl Total Bilirubin 0.5 mg/dl Direct Bilirubin 0.00 mg/dl Indirect Bilirubin 0.5 mg/dl Aspartate Amino Transf (AST/SGOT) 17 IU/L Alanine 22 IU/L Aminotransferase (ALT/SGPT) Alkaline Phosphatase 64 IU/L Total Protein 6.8 g/dl Albumin 3.6 g/dl Globulin 3.20 g/dl Albumin/Globulin Ratio 1.12 Lipase 78 U/L White Blood Count 9.7 10^3/ul Red Blood Count 4.26 10^6/ul Hemoglobin 11.5 g/dl Hematocrit 35.8 % Mean Corpuscular Volume 84.0 fl Mean Corpuscular Hemoglobin 27.0 pg Mean Corpuscular 32.1 g/dl Hemoglobin Concent Red Cell Distribution Width 13.2 % Platelet Count 258 10^3/UL Mean Platelet Volume 9.7 fl Immature Granulocytes % 0.200 % Neutrophils % 74.8 % Lymphocytes % 16.4 % Monocytes % 6.9 % Eosinophils % 1.3 % Basophils % 0.4 % Nucleated Red Blood Cells % 0.0 /100WBC Immature Granulocytes # 0.020 10^3/ul Neutrophils # 7.2 10^3/ul Lymphocytes # 1.6 10^3/ul Monocytes # 0.7 10^3/ul Eosinophils # 0.1 10^3/ul Basophils # 0.0 10^3/ul Nucleated Red Blood Cells # 0.0 10^3/ul Urine Color YELLOW Urine Clarity CLOUDY Urine pH 5.0 Urine Specific [place] 1.015 Urine Ketones TRACE mg/dL Urine Nitrite NEGATIVE mg/dL Urine Bilirubin NEGATIVE mg/dL Urine Urobilinogen NEGATIVE mg/dL Urine Leukocyte Esterase NEGATIVE Kyle/ul Urine Microscopic RBC 4 /HPF Urine Microscopic WBC 5 /HPF Urine Squamous Epithelial Cells FEW /HPF Urine Bacteria FEW /HPF Urine Mucus FEW /HPF Urine Hemoglobin 2+ mg/dL Urine Glucose NEGATIVE mg/dL Urine Total Protein NEGATIVE mg/dl Current Medications Medications Dose Sig/Rosana Start Time Status Last (Trade) Ordered Route PRN Stop Time Admin Dose Reason Admin Sodium 1,000 ml @ Q1H STAT 10/05/18 DC 10/05/18 Chloride 1,000 mls/hr IV 12:48 13:23 10/05/18 13:47 Morphine 4 mg ONCE STAT 10/05/18 DC 10/05/18 Sulfate IV 12:48 13:23 (morphine) 10/05/18 12:51 Ondansetron 4 mg ONCE STAT 10/05/18 DC 10/05/18 HCl (Zofran IV 12:48 13:22 Inj) 10/05/18 12:51 IV Flush 10 ml STK-MED 10/05/18 DC 10/05/18 (NS 10 ml) ONCE .ROUTE 14:43 15:06 10/05/18 14:44 Sodium 100 ml @ ud STK-MED 10/05/18 DC 10/05/18 Chloride ONCE .ROUTE 14:43 15:06 10/05/18 14:44 Iohexol 150 ml STK-MED 10/05/18 DC 10/05/18 (Omnipaque ONCE .ROUTE 14:43 15:06 300mg/ ml) 10/05/18 14:44 Morphine 4 mg ONCE STAT 10/05/18 DC 7/10/19 Sulfate IV 19:37 19:57 (morphine) 10/05/18 19:39 Ondansetron 4 mg ONCE STAT 10/05/18 DC 10/05/18 HCl (Zofran IV 19:37 19:57 Inj) 10/05/18 19:39 Ondansetron 4 mg BRIDGE ORDER 10/05/18 HCl (Zofran PRN IV 21:30 Inj) NAUSEA/VOMITI 10/06/18 21:29 NG 650 mg ER BRIDGE 10/05/18 Acetaminophen PRN PO 21:30 (Tylenol .MILD PAIN 10/06/18 21:29 Tab) 1-3 OR TEMP Procedures/MDM MDM The patient's presentation warrants further investigation. Previous medical records, if available, were reviewed. LABS The patient's laboratory testing was obtained and reviewed. No emergent miki tment was required unless described below. CBC: Normocytic anemia, not emergent. No E/o systemic infection or thrombocytopenia Chemistry: Hypokalemia, not emergent. No E/o severe acidosis or alkalosis or renal failure or liver disease or diabetic ketoacidosis Lipase: No E/o pancreatitis PT/INR: No E/o significant coagulopathy Urine: No E/o acute infection or significant hematuria IMAGING Imaging and Radiology interpretation reviewed. CT Abd/Pelvis FINDINGS: Lower thorax:The lung bases are clear. Liver: There is diffuse mild to moderately heterogeneous enhancement of the liver with several scattered punctate foci of hypo enhancement not fully characterized. The portal vein is intact without thrombus. Biliary: The gallbladder is unremarkable without inflammation. No biliary dilatation. Pancreas: Homogeneous density and enhancement of the pancreas without visible focal lesion or cystic abnormality. There is no pancreatic ductal dilatation. Spleen: Unremarkable without enlargement or focal lesion. Adrenal Glands: The adrenal glands are within normal limits without mass. Urinary: The kidneys are symmetric in size bilaterally with symmetric enhancement. There are no visible renal or ureteral stones. There is no hydronephrosis. Gastrointestinal: There is an intussusception seen involving the distal sigmoid colon extending into the rectum. The length of the intussusception measures approximately 14 cm and there is an area of localized soft tissue thickening and lobular enhancing measuring 4 cm which could represent a lead point mass. There is approximately fecal filled colon present without evidence of a complete bowel obstruction. The appendix is unremarkable. Fat stranding is seen around the rectum in the area of the intussusception. Lymph nodes: Borderline enlarged lymph nodes are seen in the lower mesentery and in the denita colonic fat involving the intussusceptum portion. The largest lymph node measures 1.3 x 0.8 cm on series 3, image 132. Vascular: The aorta is unremarkable. Peritoneum/mesentery: There is trace fluid in the pelvis. There is no evidence of free air. Reproductive organs: The uterus and adnexal structures are grossly within normal limits. Musculoskeletal: Degenerative changes are seen in the lumbar spine with no acute osseous abnormality IMPRESSION: Distal colonic intussusception is seen with telescoping of the distal sigmoid colon into the rectum with a suspected mass of the lead point. The mass measures up to 4 cm with approximately 14 cm in length of telescoping of the intussusception. Denita rectal mildly prominent lymph nodes are seen which are indeterminate and this could represent colonic neoplasm. There are inflamma tory changes seen around the rectum in the area of intussusception without a complete obstruction. There is approximately fecal filled colon and the appendix is unremarkable. Heterogeneous enhancement of the liver is seen with numerous foci of punctate hypo enhancement not fully characterize and this can be correlated with MRI of the liver with contrast. Electronically viewed and signed by .Anshul Ren MD, on 10/05/2018 15:29 TREATMENT/DISPOSITION The patient presents with a known rectal mass with evidence of intussusception at this time. This is likely the etiology of the patient's pain today. I spoke with the patient's chicken fancier, Dr. Espinoza, who reports that the patien t requires colorectal surgery consultation for likely operative intervention. I subsequently spoke to Dr. Agustin, a colorectal surgeon at our hospital, who is coming into the hospital to evaluate the patient for possible surgical intervention. In speaking with the surgeon, this is something that is likely chronic in nature. Intussusception usually comes and goes. It is unlikely to persist to the level of necrosis and ischemia. However, this is an urgent matter that requires admission for further management. The patient does not have any evidence of peritonitis. The patient does not have clinical symptoms concerning for mesenteric ischemia or ischemic colitis. The patient does not have right upper quadrant tenderness, and I have low suspicion for gallstones, cholecystitis or biliary colic. The patient does not have any epigastric pain. I have low suspicion for gastritis, PUD or GERD. The patient does not have left upper quadrant tenderness. I have low suspicion for pancreatitis. The patient does not have any right lower quadrant tenderness, or periumbilical tenderness. I have low suspicion for appendicitis. The patient does not have suprapubic tenderness. I have decreased suspicion for cystitis.The CT does not reveal any evidence of diverticulosis or diverticulitis. The alma ent does not have any flank tenderness. The patient does not have gross hematuria. I have decreased suspicion for nephrolithiasis or renal colic. The patient does not have any palpable pulsatile mass or severe abdominal pain radiating to the back. I have low suspicion for aortic aneurysm, dissection or rupture. ADMISSION At this time, I feel that the patient requires admission for further evaluation and management. The patient will be admitted to [Panel] in accordance with the patient's insurance. The patient was accepted by Dr. Bustamante at 2059PM October 05, 2018. Dr. Agustin from colorectal surgery was consulted on the case and will evaluate the patient in the hospital. Dr. Espinoza, the patient's chicken fancier, was also consulted on the case. Disclaimer: Inadvertent spelling and grammatical errors are likely due to EHR/dictation software use and do not reflect on the overall quality of patient care. Note that the electronic time recorded on this note does not necessarily reflect the actual time of the patient encounter. Departure Diagnosis: Primary Impression: Intussusception Additional Impressions: Mass of colon Rectal bleeding Abdominal pain Abdominal location: lower abdomen, unspecified Qualified Codes: R10.30 - Lower abdominal pain, unspecified Normocytic anemia Hypokalemia Condition: Serious PATEL SINGH MD Oct 05, 2018 21:24
[2018-10-05] MEDS ORDERED: NACL 0.9% 3 ML SYG IV SCH (21:30)
[2018-10-05] MEDS ORDERED: ONDANSETRON 4 MG INJ IV PRN ×2 (21:30)
[2018-10-05] MEDS ORDERED: ACETAMINOPHEN 325 MG TAB PO PRN (21:30)
--- NOTE | 2018-10-05 21:46 | HP ---
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 Patient was seen and examined at the bedside by the colorectal surgeon Dr. Agustin. After discussion with him and the patient the decision was made to proceed with surgery on Wednesday. In the meantime patient will be put on a clear liquid diet. Pain control. N.p.o. after midnight on night. 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 Result Diagram: 10/05/18 1317 10/05/18 1316 Results 24hrs Laboratory Tests Test 10/05/18 13:14 10/05/18 13:16 10/05/18 13:17 POC Beta HCG, Qualitative NEGATIVE Prothrombin Time 14.2 Prothrombin Time Ratio 1.1 INR International Normalized Ratio 1.09 Activated Partial Thromboplast Time 33.5 Sodium Level 145 H Potassium Level 3.4 L Chloride Level 111 H Carbon Dioxide Level 27 Anion Gap 7 Blood Urea Nitrogen 8 Creatinine 0.70 Est Glomerular Filtrat Rate mL/min > 60 Glucose Level 100 Calcium Level 9.3 Total Bilirubin 0.5 Direct Bilirubin 0.00 Indirect Bilirubin 0.5 Aspartate Amino Transf (AST/SGOT) 17 Alanine Aminotransferase (ALT/SGPT) 22 Alkaline Phosphatase 64 Total Protein 6.8 Albumin 3.6 Globulin 3.20 Albumin/Globulin Ratio 1.12 Lipase 78 White Blood Count 9.7 Red Blood Count 4.26 # Hemoglobin 11.5 #L Hematocrit 35.8 #L Mean Corpuscular Volume 84.0 Mean Corpuscular Hemoglobin 27.0 L Mean Corpuscular Hemoglobin Concent 32.1 Red Cell Distribution Width 13.2 Platelet Count 258 # Mean Platelet Volume 9.7 Immature Granulocytes % 0.200 Neutrophils % 74.8 Lymphocytes % 16.4 Monocytes % 6.9 Eosinophils % 1.3 Basophils % 0.4 Nucleated Red Blood Cells % 0.0 Immature Granulocytes # 0.020 Neutrophils # 7.2 Lymphocytes # 1.6 Monocytes # 0.7 Eosinophils # 0.1 Basophils # 0.0 Nucleated Red Blood Cells # 0.0 Urine Color YELLOW Urine Clarity CLOUDY A Urine pH 5.0 Urine Specific [place] 1.015 Urine Ketones TRACE A Urine Nitrite NEGATIVE Urine Bilirubin NEGATIVE Urine Urobilinogen NEGATIVE Urine Leukocyte Esterase NEGATIVE Urine Microscopic RBC 4 Urine Microscopic WBC 5 Urine Squamous Epithelial Cells FEW Urine Bacteria FEW A Urine Mucus FEW A Urine Hemoglobin 2+ H Urine Glucose NEGATIVE Urine Total Protein NEGATIVE HPI/ROS Admit Date/Time Admit Date/Time Hx of Present Illness Chief complaint: Worsening abdominal pain This is a 38-year-old female who presented to the emergency department complain ing of abdominal pain status post colonoscopy. Patient has been dealing with intermittent abdominal pain and bloody stools for the last 2 months. She ended up undergoing a colonoscopy yesterday and had biopsies performed. She states that today she came to the emergency department as she had worsening rectal bleeding with mucus in her bowel movements as well as pressure-like sensation in her rectum and abdominal pain. 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 Patient also reports that prior to the colonoscopy her bowel prep also resulted in her having pain. She had a CT of the abdomen pelvis performed which showed signs of intussusception. Colorectal surgery Dr. Agustin was consulted. She was seen in the emergency department by the colorectal surgeon Dr. Agustin who performed a bedside proctosigmoidoscopy, please see his notes for further details. Dr. Agustin tentatively has a patient plan for lower anterior resection of the rectum on Wednesday. Allergies: NKDA Medications: None allergies ROS Const: As per HPI Eyes : No pain discharge or redness or change in visual acuity ENT: No pain, sore throat, congestion, congestion, dysphagia or discharge Respiratory: No shortness of breath, cough, sputum, wheezing, or pleuritic pain Cardiovascular: No chest pain, palpitation, PND, or edema GI : As per HPI Genitourinary: No dysuria, hematuria, flank pain , discharge or CVA tenderness Musculoskeletal: No joint pain, back pain, neck pain, restricted range of motion in neck or joints Skin: No rash, bruising or hives Neuro: No headache, dizziness, syncope, seizure, focal weakness Endocrine: No polyuria, polydipsia, temperature intolerance Psych: No hallucination, depression, anxiety or suicidal ideation PMH/Family/Social Past Medical History Gestational diabetes mellitus, recent diagnosis of rectosigmoid cancer Medications Current Medications Ondansetron HCl (Zofran Inj) 4 mg BRIDGE ORDER PRN IV NAUSEA/VOMITING; Start 10/05/18 at 21:30; Stop 10/06/18 at 21:29 Acetaminophen (Tylenol Tab) 650 mg ER BRIDGE PRN PO .MILD PAIN 1-3 OR TEMP; Start 10/05/18 at 21:30; Stop 10/06/18 at 21:29 Sodium Chloride 1,000 ml @ 80 mls/hr [id number] IV ; Start 10/05/18 at 21:09 IV Flush (NS 3 ml) 3 ml PER PROTOCOL IV ; Start 10/05/18 at 21:30 Ondansetron HCl (Zofran Inj) 4 mg Q6H PRN IV NAUSEA/VOMITING; Start 10/05/18 at 21:30 Morphine Sulfate (morphine) 2 mg Q4H PRN IV .PAIN 7-10; Start 10/05/18 at 21:30 Famotidine (Pepcid Iv) 20 mg Q12 IV ; Start 10/05/18 at 21:30 Coded Allergies: No Known Allergy (Unverified , 10/05/18) Past Surgical History colonoscopy, Family History Significant Family History: cancer (Colon cancer: Father) Social History Alcohol Use: none Smoking Status: Never smoker Drug Use: none Exam/Review of Systems Vital Signs Vitals Vital Signs Date Temp Pulse Resp B/P (MAP) Pulse Ox O2 O2 Flow FiO2 Time Delivery Rate 10/05/18 80 14 103/69 99 Room Air 21:07 (80) 10/05/18 98.0 11:56 Exam Exam General: Patient is a pleasant female currently lying in bed in no acute distress HEENT: Atraumatic, normocephalic. The pupils are equal, round and reactive. Extraocular motor are intact Neck: Supple with full range of motion. No rigidity or meningismus Chest: Nontender Lungs: Clear to auscultation bilaterally no crackles rales or wheezing Heart: Normal S1-S2, Regular rhythm and rate. No murmur, S3, or S4 Abdomen: Soft , nontender, nondistended , bowel sounds are present. No guarding no rebound tenderness , No masses or organomegaly. No costovertebral temporal angle mass Extremities: Normal to inspection, no edema no cyanosis Rectal exam: Deferred, please see colorectal surgeon Dr. Gonzalez examination for full details Neurologic: Normal mental status, speech normal, cranial nerves II through XII are intact, motor and sensory are intact, no focal weakness Additional Comments PROCEDURE: CT abdomen and pelvis with contrast. CLINICAL INDICATION: Pain after colonoscopy TECHNIQUE: CT scan of the abdomen and pelvis with contrast was performed on a multi-slice CT scanner . The patient was scanned after administration of 85 cc of Omnipaque-300 intravenous contrast. Sagittal and coronal reformatted images were obtained from the axial source images. One or more of the following dose reduction techniques were used: - Automated exposure control. - Adjustment of the mA and/or kV according to patient size. - Use of iterative reconstruction technique. DICOM images are available DLP 761.3 mGycm. CTDIvol 13.6 mGy COMPARISON: None. FINDINGS: Lower thorax:The lung bases are clear. Liver: There is diffuse mild to moderately heterogeneous enhancement of the liver with several scattered punctate foci of hypo enhancement not fully characterized. The portal vein is intact without thrombus. Biliary: The gallbladder is unremarkable without inflammation. No biliary dilatation. Pancreas: Homogeneous density and enhancement of the pancreas without visible focal lesion or cystic abnormality. There is no pancreatic ductal dilatation. Spleen: Unremarkable without enlargement or focal lesion. Adrenal Glands: The adrenal glands are within normal limits without mass. Urinary: The kidneys are symmetric in size bilaterally with symmetric enhan cement. There are no visible renal or ureteral stones. There is no hydronephrosis. Gastrointestinal: There is an intussusception seen involving the distal sigmoid colon extending into the rectum. The length of the intussusception measures approximately 14 cm and there is an area of localized soft tissue thickening and lobular enhancing measuring 4 cm which could represent a lead point mass. There is approximately fecal filled colon present without evidence of a complete bowel obstruction. The appendix is unremarkable. Fat stranding is seen around the rectum in the area of the intussusception. Lymph nodes: Borderline enlarged lymph nodes are seen in the lower mesentery and in the denita colonic fat involving the intussusceptum portion. The largest lymph node measures 1.3 x 0.8 cm on series 3, image 132. Vascular: The aorta is unremarkable. Peritoneum/mesentery: There is trace fluid in the pelvis. There is no evidence of free air. Reproductive organs: The uterus and adnexal structures are grossly within normal limits. Musculoskeletal: Degenerative changes are seen in the lumbar spine with no acute osseous abnormality Other: None IMPRESSION: Distal colonic intussusception is seen with telescoping of the distal sigmoid colon into the rectum with a suspected mass of the lead point. The mass measures up to 4 cm with approximately 14 cm in length of telescoping of the intussusception. Denita rectal mildly prominent lymph nodes are seen which are indeterminate and this could represent colonic neoplasm. There are inflammatory changes seen around the rectum in the area of intussusception without a complete obstruction. There is approximately fecal filled colon and the appendix is unremarkable. Heterogeneous enhancement of the liver is seen with numerous foci of punctate hypo enhancement not fully characterize and this can be correlated with MRI of the liver with contrast. RPTAT: AA .Anshul Ren MD, MD Date Time Electronically viewed and signed by .Anshul Ren MD, MD on 10/05/2018 15:29 .J/ CC: LOBO BIGGS PA-C [id number] VICTORINO SIBLEY Oct 05, 2018 21:46
--- NOTE | 2018-10-05 22:36 | CONS ---
Assessment/Plan Assessment/Plan Assessment/Plan (Daily) Ms. Quiñonez is a 38 y/o with a family history of colon cancer who was recently diagnosed with a rectosigmoid cancer. Due to worsening pain from the intussuscepting lesion, she presented to the ED. On exam, she has a pedunculated lesion in her proximal anterior rectum at 11 cm from the anal verge . Her CT scan was negative for metastatic disease and she has no signs or symptoms of obstruction. 1. Admit to the hospital 2. Clear liquid diet 3. Pain control 4. Schedule low anterior resection of rectum in next 1-2 days. CC: ALONSO LEIGH MD ; Consultation Date/Type/Reason Admit Date/Time Date of Consultation: Oct 05, 2018 Type of Consult Colorectal Surgery Reason for Consultation Rectosigmoid cancer Requesting Provider: PATEL SINGH MD Date/Time of Note DATE: 10/05/18 TIME: 22:18 Hx of Present Illness Ms. Quiñonez is a 38 y/o female who underwent a colonoscopy yesterday that revealed a bulky lesion 12 cm from the anal verge. The colonoscopy was incomplete due to the size of the lesion and a poor prep. Biopsies revealed an adenocarcinoma. She had been having two months of bloody stools and has been having several weeks of intermittent lower abdominal pain. This pain worsened during her prep for the colonoscopy and afterwards. She denies any abdominal distention, nausea or vomiting. She is currently pain-free, but she presented to the ER this evening with worsening abdominal pain. A CT scan was performed that revealed an intussusception of the rectosigmoid tumor into the rectum. There was no evidence of colonic perforation or liver metastases. Her father was diagnosed with colon cancer in his late 60's. Constitutional: no complaints, improved Eyes: no complaints ENT: no complaints Respiratory: no complaints Cardiovascular: no complaints Gastrointestinal: pain (intermittent lower abdominal pain, especially with bearing down), blood Genitourinary: no complaints Musculoskeletal: no complaints Skin: no complaints Neurologic: no complaints Endocrine: no complaints Psychological: no complaints, nl mood/affect Immunologic: no complaints Past Medical History Medical History: no pertinent history Home Meds Discontinued Reported Medications [None] No Conflict Check 10/04/18 Multivit/Min/Fol Ac/Iron/Pren* ( S*) 1 Tab Tab, 1 TAB PO DAILY, TAB 09/19/16 Medications Current Medications Ondansetron HCl (Zofran Inj) 4 mg BRIDGE ORDER PRN IV NAUSEA/VOMITING; Start 10/05/18 at 21:30; Stop 10/06/18 at 21:29 Acetaminophen (Tylenol Tab) 650 mg ER BRIDGE PRN PO .MILD PAIN 1-3 OR TEMP; Start 10/05/18 at 21:30; Stop 10/06/18 at 21:29 Sodium Chloride 1,000 ml @ 80 mls/hr [id number] IV ; Start 10/05/18 at 21:09 IV Flush (NS 3 ml) 3 ml PER PROTOCOL IV ; Start 10/05/18 at 21:30 Ondansetron HCl (Zofran Inj) 4 mg Q6H PRN IV NAUSEA/VOMITING; Start 10/05/18 at 21:30 Morphine Sulfate (morphine) 2 mg Q4H PRN IV .PAIN 7-10; Start 10/05/18 at 21:30 Famotidine (Pepcid Iv) 20 mg Q12 IV ; Start 10/05/18 at 21:30 Allergies: Coded Allergies: No Known Allergy (Unverified , 10/05/18) Past Surgical History Past Surgical Hx: other (cesarian section 2 years ago) Family History Significant Family History: cancer (father had colon cancer) Social History Alcohol Use: none Smoking Status: Never smoker Drug Use: none Other Social History with one son. Exam/Review of Systems Exam Vitals Vital Signs Date Temp Pulse Resp B/P (MAP) Pulse Ox O2 O2 Flow FiO2 Time Delivery Rate 10/05/18 80 14 103/69 99 Room Air 21:07 (80) 10/05/18 98.0 11:56 Constitutional: alert, oriented, well developed Psych: no complaints, nl mood/affect Head: No normocephalic, No atraumatic, No lacerations, No hematomas, No other Eyes: nl conjunctiva, EOMI, nl lids, nl sclera, PERRL ENMT: nl external ears & nose, nl lips & teeth, mucosa pink and moist Neck: supple, non-tender Respiratory: clear to auscultation, normal air movement Cardiovascular: regular rate and rhythm, nl pulses Gastrointestinal: soft, nl liver, spleen, non-tender Musculoskeletal: nl extremities to inspection, nl gait and stance Extremities: normal pulses Neurological: nl mental status, nl speech, nl strength Skin: nl turgor; No rash or lesions Lymph: nl lymph nodes Additional Comments RECTAL EXAM: Normal perianal skin, normal sphincter tone, mobile lesion in rectal vault. RIGID PROCTOSIGMOIDOSCOPY: After discussing the risks, alternatives and benefits of a diagnostic proctosigmoidoscopy, I place the lubricated scope into the patient's rectum. This revealed a large, pedunculated lesion in the anterior rectum 11 cm from the anal verge. Gentle pressure reduced the intussusception and a open lumen was seen proximal to the lesion. This corresponded to the endoscopic findings from yesterday. The remaining rectal mucosa was normal. The scope was removed without difficulty. A SMITA was performed and the lesion was no longer in the distal rectum. Results Result Diagram: 10/05/18 1317 10/05/18 1316 Results 24hrs Laboratory Tests Test 10/05/18 13:14 10/05/18 13:16 10/05/18 13:17 POC Beta HCG, Qualitative NEGATIVE Prothrombin Time 14.2 Prothrombin Time Ratio 1.1 INR International Normalized Ratio 1.09 Activated Partial Thromboplast Time 33.5 Sodium Level 145 H Potassium Level 3.4 L Chloride Level 111 H Carbon Dioxide Level 27 Anion Gap 7 Blood Urea Nitrogen 8 Creatinine 0.70 Est Glomerular Filtrat Rate mL/min > 60 Glucose Level 100 Calcium Level 9.3 Total Bilirubin 0.5 Direct Bilirubin 0.00 Indirect Bilirubin 0.5 Aspartate Amino Transf (AST/SGOT) 17 Alanine Aminotransferase (ALT/SGPT) 22 Alkaline Phosphatase 64 Total Protein 6.8 Albumin 3.6 Globulin 3.20 Albumin/Globulin Ratio 1.12 Lipase 78 White Blood Count 9.7 Red Blood Count 4.26 # Hemoglobin 11.5 #L Hematocrit 35.8 #L Mean Corpuscular Volume 84.0 Mean Corpuscular Hemoglobin 27.0 L Mean Corpuscular Hemoglobin Concent 32.1 Red Cell Distribution Width 13.2 Platelet Count 258 # Mean Platelet Volume 9.7 Immature Granulocytes % 0.200 Neutrophils % 74.8 Lymphocytes % 16.4 Monocytes % 6.9 Eosinophils % 1.3 Basophils % 0.4 Nucleated Red Blood Cells % 0.0 Immature Granulocytes # 0.020 Neutrophils # 7.2 Lymphocytes # 1.6 Monocytes # 0.7 Eosinophils # 0.1 Basophils # 0.0 Nucleated Red Blood Cells # 0.0 Urine Color YELLOW Urine Clarity CLOUDY A Urine pH 5.0 Urine Specific Randle 1.015 Urine Ketones TRACE A Urine Nitrite NEGATIVE Urine Bilirubin NEGATIVE Urine Urobilinogen NEGATIVE Urine Leukocyte Esterase NEGATIVE Urine Microscopic RBC 4 Urine Microscopic WBC 5 Urine Squamous Epithelial Cells FEW Urine Bacteria FEW A Urine Mucus FEW A Urine Hemoglobin 2+ H Urine Glucose NEGATIVE Urine Total Protein NEGATIVE Medications Medication Current Medications Ondansetron HCl (Zofran Inj) 4 mg BRIDGE ORDER PRN IV NAUSEA/VOMITING; Start 10/05/18 at 21:30; Stop 10/06/18 at 21:29 Acetaminophen (Tylenol Tab) 650 mg ER BRIDGE PRN PO .MILD PAIN 1-3 OR TEMP; Start 10/05/18 at 21:30; Stop 10/06/18 at 21:29 Sodium Chloride 1,000 ml @ 80 mls/hr [id number] IV ; Start 10/05/18 at 21:09 IV Flush (NS 3 ml) 3 ml PER PROTOCOL IV ; Start 10/05/18 at 21:30 Ondansetron HCl (Zofran Inj) 4 mg Q6H PRN IV NAUSEA/VOMITING; Start 10/05/18 at 21:30 Morphine Sulfate (morphine) 2 mg Q4H PRN IV .PAIN 7-10; Start 10/05/18 at 21:30 Famotidine (Pepcid Iv) 20 mg Q12 IV ; Start 10/05/18 at 21:30 ANDRE HENDRICKS MD Oct 05, 2018 22:30
[2018-10-05] MEDS: FAMOTIDINE 20 MG INJ IV SCH (22:40)
[2018-10-05] MEDS: morphine 2 MG INJ IV PRN (23:33)
[2018-10-05 23:35] VITALS: BP 107/58; PULSE 101; RESP 18
[2018-10-05 23:51] VITALS: Ht 170.2 cm; Wt 81.9 kg
[2018-10-06] MEDS ORDERED: ZOLPIDEM 5 MG TAB PO ONE (01:00)
[2018-10-06 02:00] VITALS: BP 106/57; PULSE 90; RESP 18
[2018-10-06] MEDS: morphine 2 MG INJ IV PRN ×2 (04:31→08:48)
[2018-10-06 07:13] VITALS: BP 95/51; PULSE 83; RESP 15
[2018-10-06] MEDS: FAMOTIDINE 20 MG INJ IV SCH (08:47)
--- NOTE | 2018-10-06 10:37 | CONS ---
Assessment/Plan Assessment/Plan Hospital Course (Demo Recall) #Colorectal adenocarcinoma -this was described as a lesion 12 cm from the anal verge and proven to be a moderately differentiated adenocarcinoma of the colon. Given its location, it could be considered a high rectal lesion -I had an extensive discussion with colorectal surgeon Dr. Agustin who noted how mobile the mass is since it is causing intussusception and prolapse through the anus. Given its mobility it will be very difficult to given neoadjuvant chemotherapy and radiation and target this mobile lesion. In addition, she has tremendous pain from this lesion and the intussusception. I therefore agree with proceed with LAR surgery and will discuss adjuvant chemotherapy based on the results of the surgery. Thank you for the opportunity to participate in this patients care A total of 40 minutes of face to face time was spent speaking with the patient, of which greater than 50% was spent in counseling and coordination of care and the detailed question and answer session. Consultation Date/Type/Reason Admit Date/Time October 05, 2018 Date of Consultation: Oct 06, 2018 Type of Consult oncology Reason for Consultation colorectal ca Requesting Provider: VICTORINO SIBLEY Date/Time of Note DATE: 10/06/18 TIME: 10:27 Hx of Present Illness MS Quiñonez is a pleasant 38 yo female with 2 mo of bloody stool who on 10/04/18 underwent a colonoscopy that revealed a malignant bulky lesions 12 cm from anal verge. Colonoscopy was incomplete due to the obstructing lesion and poor prep. Bx revealed adenocarcinoma. The colonoscopy was incomplete due to the size of the lesion and a poor prep. Yesterday patient presented the ER after the colonoscopy for with worsening abdominal pain. A CT scan was performed that revealed an intussusception of the rectosigmoid tumor into the rectum. There was no evidence of colonic perforation or liver metastases. Her father was diagnosed with colon cancer in his late 60's. PT is now scheduled for LAR with Dr. Agustin on Wednesday. 10/05/18 CT : -Distal colonic intussusception is seen with telescoping of the distal sigmoid colon into the rectum with a suspected mass of the lead point. The mass measures up to 4 cm with approximately 14 cm in length of telescoping of the intussusception. Denita rectal mildly prominent lymph nodes are seen which are indeterminate and this could represent colonic neoplasm. -There are inflammatory changes seen around the rectum in the area of intussusception without a complete obstruction. There is approximately fecal filled colon and the appendix is unremarkable. -Heterogeneous enhancement of the liver is seen with numerous foci of punctate hypo enhancement not fully characterize and this can be correlated with MRI of the liver with contrast. Constitutional: no complaints Eyes: no complaints ENT: no complaints Respiratory: no complaints Cardiovascular: no complaints Gastrointestinal: pain, decreased appetite Genitourinary: no complaints Musculoskeletal: no complaints Skin: no complaints Neurologic: no complaints Endocrine: no complaints Past Medical History Medical History: no pertinent history Home Meds Discontinued Reported Medications [None] No Conflict Check 10/04/18 Multivit/Min/Fol Ac/Iron/Pren* ( S*) 1 Tab Tab, 1 TAB PO DAILY, TAB 09/19/16 Medications Current Medications Ondansetron HCl (Zofran Inj) 4 mg BRIDGE ORDER PRN IV NAUSEA/VOMITING; Start 10/05/18 at 21:30; Stop 10/06/18 at 21:29 Acetaminophen (Tylenol Tab) 650 mg ER BRIDGE PRN PO .MILD PAIN 1-3 OR TEMP; Start 10/05/18 at 21:30; Stop 10/06/18 at 21:29 IV Flush (NS 3 ml) 3 ml PER PROTOCOL IV ; Start 10/05/18 at 21:30 Ondansetron HCl (Zofran Inj) 4 mg Q6H PRN IV NAUSEA/VOMITING; Start 10/05/18 at 21:30 Morphine Sulfate (morphine) 2 mg Q4H PRN IV .PAIN 7-10 Last administered on 10/06/18at 08:48; Admin Dose 2 MG; Start 10/05/18 at 21:30 Famotidine (Pepcid Iv) 20 mg Q12 IV Last administered on 10/06/18at 08:47; Admin Dose 20 MG; Start 10/05/18 at 21:30 Sodium Chloride 1,000 ml @ 80 mls/hr [id number] IV ; Start 10/07/18 at 00:00 Allergies: Coded Allergies: No Known Allergy (Unverified , 10/05/18) Past Surgical History Past Surgical Hx: other (cesarian section 2 years ago) Family History Significant Family History: other (father with colon ca in his 50's) Social History Alcohol Use: none Smoking Status: Never smoker Drug Use: none Exam/Review of Systems Exam Vitals Vital Signs Date Temp Pulse Resp B/P (MAP) Pulse Ox O2 O2 Flow FiO2 Time Delivery Rate 10/06/18 98.7 83 15 95/51 (66) 95 Room Air 07:13 Intake and Output 10/05/18 10/05/18 10/06/18 1515:00 23:00 07:00 IntakeIntake Total 480 ml BalanceBalance 480 ml Constitutional: alert, oriented Psych: no complaints Head: normocephalic Eyes: nl conjunctiva ENMT: nl external ears & nose Neck: supple Respiratory: clear to auscultation Cardiovascular: regular rate and rhythm Gastrointestinal: soft Musculoskeletal: nl extremities to inspection Extremities: normal pulses Results Result Diagram: 10/06/1844810/06/18448 Results 24hrs Laboratory Tests Test 10/05/18 13:14 10/05/18 13:16 10/05/18 13:17 10/06/18 04:49 POC Beta HCG, NEGATIVE Qualitative Prothrombin Time 14.2 Prothrombin Time 1.1 Ratio INR International 1.09 Normalized Ratio Activated 33.5 Partial Thromboplast Time Sodium Level 145 H 142 Potassium Level 3.4 L 3.4 L Chloride Level 111 H 111 H Carbon Dioxide Level 27 25 Anion Gap 7 6 Blood Urea Nitrogen 8 5 L Creatinine 0.70 0.65 Est Glomerular > 60 > 60 Filtrat Rate mL/min Glucose Level 100 100 Calcium Level 9.3 8.5 Total Bilirubin 0.5 0.4 Direct Bilirubin 0.00 0.00 Indirect Bilirubin 0.5 0.4 Aspartate Amino 17 13 L Transf (AST/SGOT) Alanine 22 25 Aminotransferase (AL T/SGPT) Alkaline Phosphatase 64 50 Total Protein 6.8 6.0 L Albumin 3.6 3.1 L Globulin 3.20 2.90 Albumin/Globulin 1.12 1.06 Ratio Lipase 78 White Blood Count 9.7 6.9 # Red Blood Count 4.26 # 3.88 L Hemoglobin 11.5 #L 10.4 L Hematocrit 35.8 #L 32.7 L Mean Corpuscular 84.0 84.3 Volume Mean Corpuscular 27.0 L 26.8 L Hemoglobin Mean Corpuscular 32.1 31.8 L Hemoglobin Concent Red Cell 13.2 13.5 Distribution Width Platelet Count 258 # 230 Mean Platelet Volume 9.7 9.7 Immature 0.200 0.300 Granulocytes % Neutrophils % 74.8 62.3 Lymphocytes % 16.4 28.6 Monocytes % 6.9 6.4 Eosinophils % 1.3 1.7 Basophils % 0.4 0.7 Nucleated Red Blood 0.0 0.0 Cells % Immature 0.020 0.020 Granulocytes # Neutrophils # 7.2 4.3 Lymphocytes # 1.6 2.0 Monocytes # 0.7 0.4 Eosinophils # 0.1 0.1 Basophils # 0.0 0.1 Nucleated Red Blood 0.0 0.0 Cells # Urine Color YELLOW Urine Clarity CLOUDY A Urine pH 5.0 Urine Specific 1.015 Bradley Urine Ketones TRACE A Urine Nitrite NEGATIVE Urine Bilirubin NEGATIVE Urine Urobilinogen NEGATIVE Urine Leukocyte NEGATIVE Esterase Urine Microscopic 4 RBC Urine Microscopic 5 WBC Urine Squamous FEW Epithelial Cells Urine Bacteria FEW A Urine Mucus FEW A Urine Hemoglobin 2+ H Urine Glucose NEGATIVE Urine Total Protein NEGATIVE Hemoglobin A1c 5.0 Magnesium Level 1.8 Triglycerides Level 85 Cholesterol Level 128 LDL Cholesterol, 73 Calculated HDL Cholesterol 38 Cholesterol/HDL 3.3 Ratio Thyroid Stimulating 3.400 Hormone (TSH) Medications Medication Current Medications Ondansetron HCl (Zofran Inj) 4 mg BRIDGE ORDER PRN IV NAUSEA/VOMITING; Start 10/05/18 at 21:30; Stop 10/06/18 at 21:29 Acetaminophen (Tylenol Tab) 650 mg ER BRIDGE PRN PO .MILD PAIN 1-3 OR TEMP; Start 10/05/18 at 21:30; Stop 10/06/18 at 21:29 IV Flush (NS 3 ml) 3 ml PER PROTOCOL IV ; Start 10/05/18 at 21:30 Ondansetron HCl (Zofran Inj) 4 mg Q6H PRN IV NAUSEA/VOMITING; Start 10/05/18 at 21:30 Morphine Sulfate (morphine) 2 mg Q4H PRN IV .PAIN 7-10 Last administered on 10/06/18at 08:48; Admin Dose 2 MG; Start 10/05/18 at 21:30 Famotidine (Pepcid Iv) 20 mg Q12 IV Last administered on 10/06/18at 08:47; Admin Dose 20 MG; Start 10/05/18 at 21:30 Sodium Chloride 1,000 ml @ 80 mls/hr [id number] IV ; Start 10/07/18 at 00:00 HOLLIS TOUSSAINT M.D. Oct 06, 2018 10:37
[2018-10-06] MEDS: HYDROmorphONE 1 MG/ML SYG IV PRN ×3 (12:22→21:11)
[2018-10-06 14:54] VITALS: BP 104/58; PULSE 77; RESP 16
[2018-10-06] MEDS ORDERED: POTASSIUM CHLORIDE (SR) 20 MEQ TAB PO STA (15:34)
--- NOTE | 2018-10-06 15:36 | PN ---
Date/Time of Note Date/Time of Note DATE: 10/06/18 TIME: 15:31 Assessment/Plan VTE Prophylaxis Risk score (from Ns)>0 risk: 3 [place] [facility] [place] Pharmacological prophylaxis: other Pharm contraindication: other Lines/Catheters IV Catheter Type (from [facility]): Peripheral IV Urinary Cath still in place: No Assessment/Plan Assessment/Plan 1. Colorectal adenocarcinoma, schedule surgery per Dr. Agustin, pain control 2. Normocytic anemia, colon cancer related, follow up with H/H 3. Hypokalemia, KCL Result Diagram: 10/06/1844810/06/18448 Results 24hrs Laboratory Tests Test 10/06/18 04:49 White Blood Count 6.9 # Red Blood Count 3.88 L Hemoglobin 10.4 L Hematocrit 32.7 L Mean Corpuscular Volume 84.3 Mean Corpuscular Hemoglobin 26.8 L Mean Corpuscular Hemoglobin Concent 31.8 L Red Cell Distribution Width 13.5 Platelet Count 230 Mean Platelet Volume 9.7 Immature Granulocytes % 0.300 Neutrophils % 62.3 Lymphocytes % 28.6 Monocytes % 6.4 Eosinophils % 1.7 Basophils % 0.7 Nucleated Red Blood Cells % 0.0 Immature Granulocytes # 0.020 Neutrophils # 4.3 Lymphocytes # 2.0 Monocytes # 0.4 Eosinophils # 0.1 Basophils # 0.1 Nucleated Red Blood Cells # 0.0 Sodium Level 142 Potassium Level 3.4 L Chloride Level 111 H Carbon Dioxide Level 25 Anion Gap 6 Blood Urea Nitrogen 5 L Creatinine 0.65 Est Glomerular Filtrat Rate mL/min > 60 Glucose Level 100 Hemoglobin A1c 5.0 Calcium Level 8.5 Magnesium Level 1.8 Total Bilirubin 0.4 Direct Bilirubin 0.00 Indirect Bilirubin 0.4 Aspartate Amino Transf (AST/SGOT) 13 L Alanine Aminotransferase (ALT/SGPT) 25 Alkaline Phosphatase 50 Total Protein 6.0 L Albumin 3.1 L Globulin 2.90 Albumin/Globulin Ratio 1.06 Triglycerides Level 85 Cholesterol Level 128 LDL Cholesterol, Calculated 73 HDL Cholesterol 38 Cholesterol/HDL Ratio 3.3 Thyroid Stimulating Hormone (TSH) 3.400 Subjective 24 Hr Interval Summary Free Text/Dictation rectal pain this morning that is better controlled after adjustment of pain medications Exam/Review of Systems Exam Vitals Vital Signs Date Temp Pulse Resp B/P (MAP) Pulse Ox O2 O2 Flow FiO2 Time Delivery Rate 10/06/18 98.0 77 16 104/58 100 Room Air 14:54 (73) Intake and Output 10/05/18 10/05/18 10/06/18 1414:59 22:59 06:59 IntakeIntake Total 480 ml BalanceBalance 480 ml Constitutional: alert, oriented, well developed Head: normocephalic, atraumatic Eyes: nl conjunctiva, EOMI, nl lids ENMT: nl external ears & nose, nl lips & teeth, nl nasal mucosa & septum Neck: supple, non-tender Respiratory: clear to auscultation, normal air movement; No congested cough, No crackles/rales, No diminished breath sounds, No intercostal retraction, No labored breathing, No respirations, No tactile fremitus, No wheezing, No other Cardiovascular: regular rate and rhythm, nl pulses; No bruits, No diastolic murmur, No edema, No gallop, No irregular rhythm, No jugular venous distention (JVD), No murmurs/extra sounds, No rub, No systolic murmur, No S3, No S4, No other Gastrointestinal: soft, nl liver, spleen, non-tender Musculoskeletal: nl extremities to inspection Extremities: normal pulses; No calf tenderness, No cyanosis, No clubbing, No edema, No pitting pedal edema, No palpable cord, No tenderness, No other Neurological: KNAPSACK SPRAYER II-XII intact, nl mental status, nl speech, nl strength Skin: nl turgor Results Results 24hrs Laboratory Tests Test 10/06/18 04:49 White Blood Count 6.9 # Red Blood Count 3.88 L Hemoglobin 10.4 L Hematocrit 32.7 L Mean Corpuscular Volume 84.3 Mean Corpuscular Hemoglobin 26.8 L Mean Corpuscular Hemoglobin Concent 31.8 L Red Cell Distribution Width 13.5 Platelet Count 230 Mean Platelet Volume 9.7 Immature Granulocytes % 0.300 Neutrophils % 62.3 Lymphocytes % 28.6 Monocytes % 6.4 Eosinophils % 1.7 Basophils % 0.7 Nucleated Red Blood Cells % 0.0 Immature Granulocytes # 0.020 Neutrophils # 4.3 Lymphocytes # 2.0 Monocytes # 0.4 Eosinophils # 0.1 Basophils # 0.1 Nucleated Red Blood Cells # 0.0 Sodium Level 142 Potassium Level 3.4 L Chloride Level 111 H Carbon Dioxide Level 25 Anion Gap 6 Blood Urea Nitrogen 5 L Creatinine 0.65 Est Glomerular Filtrat Rate mL/min > 60 Glucose Level 100 Hemoglobin A1c 5.0 Calcium Level 8.5 Magnesium Level 1.8 Total Bilirubin 0.4 Direct Bilirubin 0.00 Indirect Bilirubin 0.4 Aspartate Amino Transf (AST/SGOT) 13 L Alanine Aminotransferase (ALT/SGPT) 25 Alkaline Phosphatase 50 Total Protein 6.0 L Albumin 3.1 L Globulin 2.90 Albumin/Globulin Ratio 1.06 Triglycerides Level 85 Cholesterol Level 128 LDL Cholesterol, Calculated 73 HDL Cholesterol 38 Cholesterol/HDL Ratio 3.3 Thyroid Stimulating Hormone (TSH) 3.400 Medications Medication Current Medications Ondansetron HCl (Zofran Inj) 4 mg BRIDGE ORDER PRN IV NAUSEA/VOMITING; Start 10/05/18 at 21:30; Stop 10/06/18 at 21:29 Acetaminophen (Tylenol Tab) 650 mg ER BRIDGE PRN PO .MILD PAIN 1-3 OR TEMP; Start 10/05/18 at 21:30; Stop 10/06/18 at 21:29 IV Flush (NS 3 ml) 3 ml PER PROTOCOL IV ; Start 10/05/18 at 21:30 Ondansetron HCl (Zofran Inj) 4 mg Q6H PRN IV NAUSEA/VOMITING; Start 10/05/18 at 21:30 Famotidine (Pepcid Iv) 20 mg Q12 IV Last administered on 10/06/18at 08:47; Admin Dose 20 MG; Start 10/05/18 at 21:30 Sodium Chloride 1,000 ml @ 80 mls/hr [id number] IV Last administered on 10/06/18at 10:44; Admin Dose 80 MLS/HR; Start 10/07/18 at 00:00 Hydromorphone HCl (Dilaudid) 1 mg Q3H PRN IV SEVERE PAIN LEVEL 7-10 Last administered on 10/06/18at 12:22; Admin Dose 1 MG; Start 10/06/18 at 12:18 CHRIS AUSTIN MD Oct 06, 2018 15:36
[2018-10-06] MEDS: D5-NS + KCL 20 MEQ 1,000 ML IV SCH (16:15)
--- NOTE | 2018-10-06 16:52 | PREAC ---
Date/Time of Note Date/Time of Note DATE: 10/06/18 TIME: 16:52 Anesthesia Eval and Record Evaluation Time Pre-Procedure Interview DATE: 10/06/18 TIME: 16:52 Age 38 Sex female NPO: 8 hrs Preoperative diagnosis Colorectal adenocarcinoma Planned procedure LAPAROSCOPIC ASSITED LOW ANTERIOR RESECTION Past Medical History Past Medical History: Includes GI: Other (Colon cancer) Heme: Anemia Surgery & Anesthesia Issues No known issue Meds Anticoagulation: No Beta Lito within 24 hr: No Reason Beta Lito not given: Pt. not on B-Lito Discontinued Reported Medications [None] No Conflict Check 10/04/18 Multivit/Min/Fol Ac/Iron/Pren* ( S*) 1 Tab Tab, 1 TAB PO DAILY, TAB 09/19/16 Current Medications IV Flush (NS 3 ml) 3 ml PER PROTOCOL IV ; Start 10/05/18 at 21:30 Ondansetron HCl (Zofran Inj) 4 mg Q6H PRN IV NAUSEA/VOMITING; Start 10/05/18 at 21:30 Hydromorphone HCl (Dilaudid) 1 mg Q3H PRN IV SEVERE PAIN LEVEL 7-10 Last administered on 10/06/18at 16:05; Admin Dose 1 MG; Start 10/06/18 at 12:18 Potassium Chloride/Dextrose/ Sod Cl 1,000 ml @ 75 mls/hr [id number] IV Last administered on 10/06/18at 16:15; Admin Dose 75 MLS/HR; Start 10/06/18 at 16:00 Famotidine (Pepcid) 20 mg Q12 PO ; Start 10/06/18 at 21:00 Meds reviewed: Yes Allergies Coded Allergies: No Known Allergy (Unverified , 10/05/18) Allergies Reviewed: Yes Labs/Studies Labs Reviewed: Reviewed by anesthesiologist Result Diagram: 10/06/189 10/06/189 Laboratory Tests 10/06/18 04:49 test: Negative Studies: CXR Pre-procedure Exam Last vitals Vital Signs Date Temp Pulse Resp B/P (MAP) Pulse Ox O2 O2 Flow FiO2 Time Delivery Rate 10/06/18 98.0 77 16 104/58 100 Room Air 14:54 (73) Airway: Adequate mouth opening Mallampati: Mallampati II Teeth: Normal Lung: Normal Heart: Normal ASA Physical Status ASA physical status: 2 Emergency: None Planned Anesthetic General/MAC: ETT Pre-operative Attestations Prior to commencing anesthesia and surgery, the patient was re-evaluated, there was verification of: *The patient's identity *The results of appropriate recent lab work and preoperative vital signs *The above evaluation not changing prior to induction *Anesthetic plan, risk benefits, alternative and complications discussed with patient/family; questions answered; patient/family understands, accepts and wishes to proceed. SEEMA SOLOMON Oct 06, 2018 16:52
[2018-10-06 19:25] VITALS: BP 115/65; PULSE 78; RESP 20
[2018-10-06] MEDS: FAMOTIDINE 20 MG TAB PO SCH (21:11)
[2018-10-07] VITALS (20 sets, daily range): BP systolic 98–129; BP diastolic 60–74; PULSE 68–100; RESP 14–23
[2018-10-07] MEDS ORDERED: SOD CHLORIDE 0.9% 1,000 ML IV SCH
[2018-10-07] MEDS: HYDROmorphONE 1 MG/ML SYG IV PRN ×5 (00:39→18:57)
[2018-10-07] MEDS: D5-NS + KCL 20 MEQ 1,000 ML IV SCH ×2 (04:30→18:53)
[2018-10-07] MEDS: FAMOTIDINE 20 MG TAB PO SCH ×2 (08:02→21:19)
--- NOTE | 2018-10-07 13:06 | PN ---
Date/Time of Note Date/Time of Note DATE: 10/07/18 TIME: 13:05 Assessment/Plan VTE Prophylaxis Risk score (from Ns)>0 risk: 3 SCD applied (from Ns): Yes Pharmacological prophylaxis: other Lines/Catheters IV Catheter Type (from [facility]): Peripheral IV Urinary Cath still in place: No Assessment/Plan Assessment/Plan 1. Colorectal adenocarcinoma, surgery today 2. Normocytic anemia, colon cancer related, follow up with H/H 3. Hypokalemia, KCL, follow up with K Result Diagram: 10/07/188 10/07/188 Results 24hrs Laboratory Tests Test 10/07/18 04:48 White Blood Count 5.9 Red Blood Count 3.63 L Hemoglobin 9.8 L Hematocrit 30.8 L Mean Corpuscular Volume 84.8 Mean Corpuscular Hemoglobin 27.0 L Mean Corpuscular Hemoglobin Concent 31.8 L Red Cell Distribution Width 13.2 Platelet Count 220 Mean Platelet Volume 9.5 Immature Granulocytes % 0.300 Neutrophils % 54.4 Lymphocytes % 34.5 Monocytes % 7.0 Eosinophils % 3.1 Basophils % 0.7 Nucleated Red Blood Cells % 0.0 Immature Granulocytes # 0.020 Neutrophils # 3.2 Lymphocytes # 2.0 Monocytes # 0.4 Eosinophils # 0.2 Basophils # 0.0 Nucleated Red Blood Cells # 0.0 Sodium Level 140 Potassium Level 3.3 L Chloride Level 109 Carbon Dioxide Level 26 Anion Gap 5 Blood Urea Nitrogen 2 L Creatinine 0.59 Est Glomerular Filtrat Rate mL/min > 60 Glucose Level 102 Calcium Level 8.5 Total Bilirubin 0.4 Direct Bilirubin 0.00 Indirect Bilirubin 0.4 Aspartate Amino Transf (AST/SGOT) 18 Alanine Aminotransferase (ALT/SGPT) 24 Alkaline Phosphatase 50 Total Protein 6.0 L Albumin 3.0 L Globulin 3.00 Albumin/Globulin Ratio 1.00 Subjective 24 Hr Interval Summary Free Text/Dictation pain is controlled Exam/Review of Systems Exam Vitals Vital Signs Date Temp Pulse Resp B/P (MAP) Pulse Ox O2 O2 Flow FiO2 Time Delivery Rate 10/07/18 98.1 72 19 111/62 96 07:50 (78) 10/07/18 Room Air 00:00 Intake and Output 10/06/18 10/06/18 10/07/18 1515:00 23:00 07:00 IntakeIntake Total 980 ml 650 ml 1250 ml BalanceBalance 980 ml 650 ml 1250 ml Constitutional: alert, oriented, well developed Psych: no complaints, nl mood/affect Head: normocephalic, atraumatic Eyes: nl conjunctiva, EOMI, nl lids ENMT: nl external ears & nose, nl lips & teeth, nl nasal mucosa & septum Neck: supple, non-tender Respiratory: clear to auscultation, normal air movement; No congested cough, No crackles/rales, No diminished breath sounds, No inte rcostal retraction, No labored breathing, No respirations, No tactile fremitus, No wheezing, No other Cardiovascular: regular rate and rhythm, nl pulses; No bruits, No diastolic murmur, No edema, No gallop, No irregular rhythm, No jugular venous distention (JVD), No murmurs/extra sounds, No rub, No systolic murmur, No S3, No S4, No other Gastrointestinal: soft, nl liver, spleen Musculoskeletal: nl extremities to inspection Extremities: normal pulses; No calf tenderness, No cyanosis, No clubbing, No edema, No pitting pedal edema, No palpable cord, No tenderness, No other 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 intact, nl mental status, nl speech, nl strength Skin: nl turgor Results Results 24hrs Laboratory Tests Test 10/07/18 04:48 White Blood Count 5.9 Red Blood Count 3.63 L Hemoglobin 9.8 L Hematocrit 30.8 L Mean Corpuscular Volume 84.8 Mean Corpuscular Hemoglobin 27.0 L Mean Corpuscular Hemoglobin Concent 31.8 L Red Cell Distribution Width 13.2 Platelet Count 220 Mean Platelet Volume 9.5 Immature Granulocytes % 0.300 Neutrophils % 54.4 Lymphocytes % 34.5 Monocytes % 7.0 Eosinophils % 3.1 Basophils % 0.7 Nucleated Red Blood Cells % 0.0 Immature Granulocytes # 0.020 Neutrophils # 3.2 Lymphocytes # 2.0 Monocytes # 0.4 Eosinophils # 0.2 Basophils # 0.0 Nucleated Red Blood Cells # 0.0 Sodium Level 140 Potassium Level 3.3 L Chloride Level 109 Carbon Dioxide Level 26 Anion Gap 5 Blood Urea Nitrogen 2 L Creatinine 0.59 Est Glomerular Filtrat Rate mL/min > 60 Glucose Level 102 Calcium Level 8.5 Total Bilirubin 0.4 Direct Bilirubin 0.00 Indirect Bilirubin 0.4 Aspartate Amino Transf (AST/SGOT) 18 Alanine Aminotransferase (ALT/SGPT) 24 Alkaline Phosphatase 50 Total Protein 6.0 L Albumin 3.0 L Globulin 3.00 Albumin/Globulin Ratio 1.00 Medications Medication Current Medications IV Flush (NS 3 ml) 3 ml PER PROTOCOL IV ; Start 10/05/18 at 21:30 Ondansetron HCl (Zofran Inj) 4 mg Q6H PRN IV NAUSEA/VOMITING; Start 10/05/18 at 21:30 Hydromorphone HCl (Dilaudid) 1 mg Q3H PRN IV SEVERE PAIN LEVEL 7-10 Last administered on 10/07/18at 12:01; Admin Dose 1 MG; Start 10/06/18 at 12:18 Potassium Chloride/Dextrose/ Sod Cl 1,000 ml @ 75 mls/hr [id number] IV Last administered on 10/07/18at 04:30; Admin Dose 75 MLS/HR; Start 10/06/18 at 16:00 Famotidine (Pepcid) 20 mg Q12 PO Last administered on 10/06/18at 21:11; Admin Dose 20 MG; Start 10/06/18 at 21:00 CHRIS AUSTIN MD Oct 07, 2018 13:06
[2018-10-07] MEDS ORDERED: POTASSIUM CHLORIDE 100 ML IVPB ONE (13:30)
--- NOTE | 2018-10-07 15:11 | HPN ---
Date/Time of Note Date/Time of Note DATE: 10/07/18 TIME: 15:09 Interval H&P Admission Note Pt. seen H&P reviewed: No system changes I spoke with Ms. Rea and her about the planned low anterior resection of her rectum. We discussed the risks of the procedure including bleeding, infection, anastomotic leak and anesthetic complications. We also discussed the possibility of a colostomy. They both voiced understanding of the plan and the possible risks of surgery and she agreed to proceed. No changes from her recent H&P. ANDRE HENDRICKS MD Oct 07, 2018 15:11
[2018-10-07] MEDS ORDERED: MIDAZOLAM 1 MG/ML 2 ML INJ ONE (15:22)
[2018-10-07] MEDS ORDERED: SUCCINYLCHOLINE CHLORIDE 100 MG/5 ML SYG IV ONE (15:23)
[2018-10-07] MEDS ORDERED: LIDOCAINE 2% (SDV) 5 ML INJ ONE (15:23)
[2018-10-07] MEDS ORDERED: ROCURONIUM 50 MG INJ ONE (15:23)
[2018-10-07] MEDS ORDERED: PROPOFOL 20 ML ONE (15:23)
[2018-10-07] MEDS ORDERED: morphine SULFATE/PF (10 MG/10 ML) INJ ONE (15:37)
[2018-10-07] MEDS ORDERED: FENTAnyl 50 MCG/ML VIAL ONE (15:45)
[2018-10-07] MEDS ORDERED: CEFAZOLIN 1 GM INJ ONE (16:04)
[2018-10-07] MEDS ORDERED: metroNIDAZOLE 500 MG/NS (PMX) 100 ML IVPB ONE (16:04)
[2018-10-07] MEDS ORDERED: FAMOTIDINE 20 MG INJ ONE (16:11)
[2018-10-07] MEDS ORDERED: DEXAMETHASONE 4 MG/ML 5 ML INJ ONE (16:11)
[2018-10-07] MEDS ORDERED: ONDANSETRON 4 MG INJ ONE (16:11)
[2018-10-07] MEDS ORDERED: EPHEDrine 25 MG/5 ML SYG ONE (16:53)
[2018-10-07] MEDS ORDERED: NEOSTIGMINE 3 MG/3 ML SYRINGE ONE ×2 (17:27→17:46)
[2018-10-07] MEDS ORDERED: GLYCOPYRROLATE 0.4 MG INJ ONE ×2 (17:27→17:46)
[2018-10-07] MEDS ORDERED: HYDROmorphONE 0.5 MG/0.5 ML SYG IV PRN ×2 (17:30)
[2018-10-07] MEDS ORDERED: HYDROmorphONE 1 MG/5 ML IV SYRINGE IV PRN ×3 (17:30)
[2018-10-07] MEDS ORDERED: NALBUPHINE HCL (10 MG/1 ML) INJ IV PRN (17:30)
[2018-10-07] MEDS ORDERED: NALOXONE (0.4 MG/ML) INJ IV PRN (17:30)
[2018-10-07] MEDS ORDERED: ONDANSETRON 4 MG INJ IV PRN ×3 (17:30→18:00)
[2018-10-07] MEDS ORDERED: MEPERIDINE 25 MG INJ IV PRN (17:30)
[2018-10-07] MEDS ORDERED: FENTAnyl 50 MCG/ML VIAL IV PRN ×3 (17:30)
[2018-10-07] MEDS ORDERED: PROCHLORPERAZINE 10 MG INJ IV PRN (17:30)
[2018-10-07] MEDS ORDERED: DIPHENHYDRAMINE 50 MG INJ IV PRN ×2 (17:30)
--- NOTE | 2018-10-07 17:56 | PAC ---
Date/Time of Note Date/Time of Note DATE: 10/07/18 TIME: 17:55 Post-Anesthesia Notes Post-Anesthesia Note Last documented vital signs Vital Signs Date Temp Pulse Resp B/P (MAP) Pulse Ox O2 O2 Flow FiO2 Time Delivery Rate 10/07/18 98.0 85 18 129/69 94 Room Air 13:58 (89) Activity: WNL Respiratory function: WNL Cardiovascular function: WNL Mental status: Baseline Pain reasonably controlled: Yes Hydration appropriate: Yes Nausea/Vomiting absent: Yes Comments BP: 111/72 HR; 97 RR: 15 T: 98 SaO2: 97% CHELSEY MAURICE MD Oct 07, 2018 17:56
[2018-10-07] MEDS ORDERED: metroNIDAZOLE 500 MG/NS (PMX) 100 ML IVPB SCH (18:00)
[2018-10-07] MEDS ORDERED: ACETAMINOPHEN 500 MG TAB PO PRN (18:00)
[2018-10-07] MEDS ORDERED: CEFAZOLIN 2 GM/50 ML (PMX) 50 ML IVPB SCH ×2 (18:00→20:00)
[2018-10-07] MEDS ORDERED: KETOROLAC 30 MG INJ ONE (18:26)
[2018-10-07] MEDS: KETOROLAC 30 MG INJ IV SCH ×2 (18:27→23:40)
[2018-10-07] MEDS ORDERED: FAMOTIDINE 20 MG TAB PO SCH (21:00)
[2018-10-07] MEDS: CEFAZOLIN 2 GM/50 ML (PMX) 50 ML IVPB SCH (21:17)
[2018-10-07] MEDS: metroNIDAZOLE 500 MG/NS (PMX) 100 ML IVPB SCH (22:02)
[2018-10-08] VITALS: BP 105/62; PULSE 68; RESP 18
--- NOTE | 2018-10-08 02:26 | OPR ---
DATE OF OPERATION: 10/07/2018 PREPROCEDURE DIAGNOSIS: Upper rectal cancer. POSTPROCEDURE DIAGNOSIS: Mid-sigmoid colon cancer. PROCEDURE PERFORMED: Open sigmoidectomy. SURGEON: Dr. Andre Agustin. DIRECTOR PHONE: Dr. Alejandro Hodges. TYPE OF ANESTHESIA: General endotracheal anesthesia with spinal anesthetic. ANESTHESIOLOGIST: Dr. Solis. INDICATIONS FOR PROCEDURE: Ms. Quiñonez is a 38-year-old female who presented to [facility] ER with abdominal pain one day following a colonoscopy. This colonoscopy identified an upper recta l cancer at 12 cm from the anal verge. A CT scan was performed which revealed intussusception of thi s proximal rectal cancer into her distal large intestine. Due to the fact that the patient had sympt omatic intussusception and pain from her prolapsing colon cancer, it was recommended that she undergo surgical intervention. Informed consent was obtained prior to the procedure. PROCEDURE IN DETAIL: The patient was brought to the operating room and after receiving spinal anesth etic, general endotracheal anesthesia was established. Next, the patient was repositioned in the low lithotomy position using Ethan stirrups. Next, after a surgical timeout and administration of perio perative antibiotics, the patient's anterior abdomen and perianal skin were prepped and draped in the usual sterile fashion. Next, a skin scalpel was utilized to make a transverse incision at the same location of her previous Pfannenstiel incision. Bovie electrocautery was then utilized to dissect do wnward to the anterior rectus sheath, which was divided transversely, exposing the rectus musculature . The abdomen was then entered in the midline by dividing the peritoneum, taking care not to injure any intraabdominal organs. An applied wound protector was then placed in this Pfannenstiel-type inci whitney. Moist laparotomy pads were utilized to pack the patient's small bowel out of the pelvis and we examin ed the patient's sigmoid colon and rectum. It became obvious that the patient had a sigmoid colon tu mor that was prolapsing into her right upper rectum. Careful traction allowed reversal of the intuss usception so we could identify that the patient had an, in fact, mid transverse colon cancer. We the n proceeded to perform a sigmoidectomy. This was done by first dividing the large bowel at the junct ion between the colon and the rectum distally and approximately 5 to 6 cm proximal from the palpable colon mass. After doing this with a contour stapler, we then removed the mesentery to this portion o f bowel using serial firings of the LigaSure tissue seal device. The specimen was then passed off th e surgical field and examined by Dr. Boland, the staff pathologist. He revealed gross negative mar gins circumferentially. We then proceeded to perform an end-to-end colorectal anastomosis. This was done by placing the anvi l from a 33 mm EEA stapler into the proximal large bowel using the auto pursestring device. It was t hen engaged to the stapler by passing the stapler up the patient's rectum via the anus. The end-to-e nd anastomosis was then accomplished using the standard technique and following this, 2 anastomotic d onuts were retrieved. We then submerged the pelvis with sterile water, clamped the bowel proximal to the anastomosis and performed a rigid proctosigmoidoscopy. This identified a healthy anastomosis 14 cm from the anal verge. Pressurization of the bowel under the water did not reveal any bubbling fro m the anastomosis indicating an intact anastomosis. The pressurization was done to a point where gas leaked out the patient's anus. The bowel was then decompressed, the proctoscope was removed and the clamp on the bowel was removed. The patient's pelvis was then suctioned until dry and all laparotomy pads and instruments were remove d from the patient's abdomen. We then removed the applied wound retractor and proceeded to close the abdominal wall. This was done by first reapproximating the peritoneum with a running 2-0 Vicryl sut ure in the midline. We then irrigated the subfascial plane and closed the fascia using a running 0 l ooped PDS suture. We then irrigated the subcutaneous plane and suctioned until dry. The Rachael fasc ia was reapproximated using interrupted 2-0 Vicryl suture and the skin edges reapproximated using a r unning 4-0 Monocryl stitch. This was done in a subcuticular fashion. Dermabond skin adhesive was th en applied to the skin and the procedure was complete. Now that all sponge, needle, and instrument counts were correct and the procedure was complete, the p atient was returned to supine position, anesthesia discontinued, and the patient was extubated in the operating room without complication. She was then transferred to the recovery room in stable condit ion. Dictated By: ANDRE AUGUST/TRACEY Conf#: [id number] DID#: [id number] CC: VICTORINO SIBLEY MD; ALONSO LEIGH MD;*EndCC*
[2018-10-08 02:50] VITALS: BP 96/52; PULSE 70; RESP 20
[2018-10-08] MEDS: CEFAZOLIN 2 GM/50 ML (PMX) 50 ML IVPB SCH ×2 (04:27→12:27)
[2018-10-08] MEDS: D5-NS + KCL 20 MEQ 1,000 ML IV SCH (04:28)
[2018-10-08] MEDS: metroNIDAZOLE 500 MG/NS (PMX) 100 ML IVPB SCH ×2 (05:31→12:27)
[2018-10-08] MEDS: KETOROLAC 30 MG INJ IV SCH ×4 (05:32→21:39)
[2018-10-08] MEDS: ENOXAPARIN 30 MG/0.3 ML SYG SC SCH (06:35)
[2018-10-08 08:26] VITALS: BP 92/54; PULSE 61; RESP 17
[2018-10-08] MEDS: FAMOTIDINE 20 MG TAB PO SCH ×2 (08:27→21:34)
--- NOTE | 2018-10-08 08:55 | PN ---
Date/Time of Note Date/Time of Note DATE: 10/08/18 TIME: 08:52 Assessment/Plan Lines/Catheters IV Catheter Type (from Nrs): Peripheral IV Reid in Place (from Nrs): Yes Assessment/Plan Chief Complaint/Hosp Course Sigmoid colon cancer Assessment/Plan Ms. Quiñonez is now POD#1 s/p sigmoid colectomy for a colon cancer that was intussuscepting into her rectum. She is doing well. 1. Advance diet as tolerated 2. Encourage ambulation Subjective 24 Hr Interval Summary Constitutional: no complaints Feeding: advancing diet Pain Control: well controlled Exam/Review of Systems Vital Signs Vitals Vital Signs Date Temp Pulse Resp B/P (MAP) Pulse Ox O2 O2 Flow FiO2 Time Delivery Rate 10/08/18 97.5 61 17 92/54 (67) 98 08:26 10/08/18 Room Air 02:50 10/07/18 6.0 18:01 Intake and Output 10/07/18 10/07/18 10/08/18 1515:00 23:00 07:00 IntakeIntake Total 725 ml 2460 ml 575 ml OutputOutput Total 100 ml 1100 ml BalanceBalance 725 ml 2360 ml -525 ml Exam Constitutional: alert, oriented Gastrointestinal: soft, surgical scars (Pfannenstiel incision is healing well, no s/s of infection), tender (minimal incisional TTP) Results Result Diagram: 10/08/189 10/08/189 Medications Medications Current Medications IV Flush (NS 3 ml) 3 ml PER PROTOCOL IV ; Start 10/05/18 at 21:30 Ondansetron HCl (Zofran Inj) 4 mg Q6H PRN IV NAUSEA/VOMITING; Start 10/05/18 at 21:30 Hydromorphone HCl (Dilaudid) 1 mg Q3H PRN IV SEVERE PAIN LEVEL 7-10 Last administered on 10/07/18at 18:57; Admin Dose 1 MG; Start 10/06/18 at 12:18 Potassium Chloride/Dextrose/ Sod Cl 1,000 ml @ 50 mls/hr Q20H IV Last administered on 10/08/18at 04:28; Admin Dose 50 MLS/HR; Start 10/06/18 at 16:00 Famotidine (Pepcid) 20 mg Q12 PO Last administered on 10/08/18at 08:27; Admin Dose 20 MG; Start 10/06/18 at 21:00 Hydromorphone HCl (Dilaudid) 0.4 mg Q2H PRN IV .PAIN 1-5; Start 10/07/18 at 17:30; Stop 10/08/18 at 15:41 Hydromorphone HCl (Dilaudid) 0.6 mg Q2H PRN IV .PAIN 6-10; Start 10/07/18 at 17:30; Stop 10/08/18 at 15:41 Ketorolac Tromethamine (Toradol) 30 mg Q6H IV Last administered on 10/08/18at 05:32; Admin Dose 30 MG; Start 10/07/18 at 17:30; Stop 10/08/18 at 15:41 Diphenhydramine HCl (Benadryl) 25 mg Q4H PRN IV .PRURITUS Last administered on 10/07/18at 22:07; Admin Dose 25 MG; Start 10/07/18 at 17:30; Stop 10/08/18 at 15:41 Nalbuphine HCl (Nubain) 5 mg Q4H PRN IV .PRURITUS; Start 10/07/18 at 17:30; Stop 10/08/18 at 15:41 Ondansetron HCl (Zofran Inj) 4 mg Q6H PRN IV .NAUSEA/VOMITING; Start 10/07/18 at 17:30; Stop 10/08/18 at 15:41 Naloxone HCl (Narcan) 0.2 mg Q2M PRN IV .RESP RATE; Start 10/07/18 at 17:30; Stop 10/08/18 at 15:41 Miscellaneous Information (* Miscellaneous Pharmacy Order) DURAMORPH: 0.2 MG SPI... GIVEN NEURAXIAL XX ; Start 10/07/18 at 17:30; Stop 10/08/18 at 15:41 Acetaminophen (Tylenol Tab) 1,000 mg Q6H PRN PO MILD PAIN(1-3)OR ELEVATED TEMP; Start 10/07/18 at 18:00 Enoxaparin Sodium (Lovenox) 30 mg DAILY@07 SC Last administered on 10/08/18at 06:35; Admin Dose 30 MG; Start 10/08/18 at 07:00 Cefazolin Sodium/ Dextrose 50 ml @ 100 mls/hr Q8H IVPB Last administered on 10/08/18at 04:27; Admin Dose 100 MLS/HR; Start 10/07/18 at 20:00; Stop 10/08/18 at 12:29 Metronidazole 100 ml @ 100 mls/hr Q8H IVPB Last administered on 10/08/18at 05:31; Admin Dose 100 MLS/HR; Start 10/07/18 at 20:30; Stop 10/08/18 at 13:29 ANDRE HENDRICKS MD Oct 08, 2018 08:55
--- NOTE | 2018-10-08 10:23 | PN ---
Date/Time of Note Date/Time of Note DATE: 10/08/18 TIME: 10:23 Assessment/Plan VTE Prophylaxis Risk score (from Nsg)>0 risk: 4 SCD applied (from Nsg): Yes Pharmacological prophylaxis: LMWH Lines/Catheters IV Catheter Type (from Nrsg): Peripheral IV Urinary Cath still in place: Yes Reason Cath still needed: other (indicate) (Status post colorectal surgery.) Assessment/Plan Hospital Course SUBJECTIVE: Denies any pain. OBJECTIVE: Physical Exam General: 38 year-old female lying in bed in no apparent distress. HEENT: Normocephalic, atraumatic. Eyes: Anicteric sclerae, conjunctivae clear. ENT: Nasal septum midline, oral mucosa moist. Respiratory: Bilaterally clear breath sounds. No use of accessory muscles of respiration. No adventitious breath sounds. Cardiovascular: S1, S2 heard. Regular rate and rhythm. Abdomen: Soft and nondistended. Incisions clean and dry. Genitourinary: Tenderness in the right flank. Extremities: No cyanosis, no clubbing, no edema. Peripheral pulses palpable. Neurologic: Cranial nerves II through XII grossly intact. The patient is awake, alert, and oriented. Skin: Normal skin turgor. No skin rashes. Labs & Vitals per chart ASSESSMENT & PLAN 38-year-old female who presented to the emergency department complaining of abdominal pain status post colonoscopy with colonoscopy done on 10/04/2018 as outpatient showing a large sigmoid tumor with pathology showing moderately differentiated adenocarcinoma. Therefore, the patient was admitted to inpatient setting for further treatment and evaluation. 1. Adenocarcinoma of the colon. Status post open sigmoidectomy and end-to-end anastomosis on 10/07/2018. Being followed by oncology. Continue pain control. Encourage ambulation. Encourage incentive spirometry. Advancement of diet as per colorectal surgery. 2. Normocytic anemia. Most probably related to underlying malignancy. Monitor H&H closely. 3. Fluids, electrolytes, and nutrition. Full liquid diet. 4. DVT prophylaxis. Subcutaneous Lovenox. 5. Plan. Continue pain control. Advancement of diet as per general surgery. Await further surgical and oncology recommendations. The patient was seen in collaboration with Dr. Torres. Result Diagram: 10/08/18 0429 10/08/18 0429 Results 24hrs Laboratory Tests Test 10/07/18 18:32 10/08/18 04:29 White Blood Count 7.9 # 8.3 Red Blood Count 4.11 L 3.60 L Hemoglobin 11.1 L 9.7 L Hematocrit 34.9 L 30.2 L Mean Corpuscular Volume 84.9 83.9 Mean Corpuscular Hemoglobin 27.0 L 26.9 L Mean Corpuscular Hemoglobin Concent 31.8 L 32.1 Red Cell Distribution Width 13.2 12.8 Platelet Count 230 232 Mean Platelet Volume 10.0 10.1 Neutrophils % 80.1 H 87.8 H Lymphocytes % 16.3 7.8 L Monocytes % 1.9 4.1 Eosinophils % 1.0 0.0 Basophils % 0.4 0.1 Nucleated Red Blood Cells % 0.0 0.0 Neutrophils # 6.3 7.2 Lymphocytes # 1.3 0.6 L Monocytes # 0.2 L 0.3 Eosinophils # 0.1 0.0 Basophils # 0.0 0.0 Nucleated Red Blood Cells # 0.0 0.0 Sodium Level 140 138 Potassium Level 3.4 L 4.1 Chloride Level 109 108 Carbon Dioxide Level 26 26 Anion Gap 5 4 L Blood Urea Nitrogen 3 L 3 L Creatinine 0.52 0.53 Est Glomerular Filtrat Rate mL/min > 60 > 60 Glucose Level 129 131 Calcium Level 8.3 L 8.3 L Immature Granulocytes % 0.200 Immature Granulocytes # 0.020 Total Bilirubin 0.4 Direct Bilirubin 0.00 Indirect Bilirubin 0.4 Aspartate Amino Transf (AST/SGOT) 20 Alanine Aminotransferase (ALT/SGPT) 34 Alkaline Phosphatase 44 Total Protein 5.4 L Albumin 2.7 L Globulin 2.70 Albumin/Globulin Ratio 1.00 Exam/Review of Systems Exam Vitals Vital Signs Date Temp Pulse Resp B/P (MAP) Pulse Ox O2 O2 Flow FiO2 Time Delivery Rate 10/08/18 97.5 61 17 92/54 (67) 98 08:26 10/08/18 Room Air 02:50 10/07/18 6.0 18:01 Intake and Output 10/07/18 10/07/18 10/08/18 1515:00 23:00 07:00 IntakeIntake Total 725 ml 2460 ml 575 ml OutputOutput Total 100 ml 1100 ml BalanceBalance 725 ml 2360 ml -525 ml Results Results 24hrs Laboratory Tests Test 10/07/18 18:32 10/08/18 04:29 White Blood Count 7.9 # 8.3 Red Blood Count 4.11 L 3.60 L Hemoglobin 11.1 L 9.7 L Hematocrit 34.9 L 30.2 L Mean Corpuscular Volume 84.9 83.9 Mean Corpuscular Hemoglobin 27.0 L 26.9 L Mean Corpuscular Hemoglobin Concent 31.8 L 32.1 Red Cell Distribution Width 13.2 12.8 Platelet Count 230 232 Mean Platelet Volume 10.0 10.1 Neutrophils % 80.1 H 87.8 H Lymphocytes % 16.3 7.8 L Monocytes % 1.9 4.1 Eosinophils % 1.0 0.0 Basophils % 0.4 0.1 Nucleated Red Blood Cells % 0.0 0.0 Neutrophils # 6.3 7.2 Lymphocytes # 1.3 0.6 L Monocytes # 0.2 L 0.3 Eosinophils # 0.1 0.0 Basophils # 0.0 0.0 Nucleated Red Blood Cells # 0.0 0.0 Sodium Level 140 138 Potassium Level 3.4 L 4.1 Chloride Level 109 108 Carbon Dioxide Level 26 26 Anion Gap 5 4 L Blood Urea Nitrogen 3 L 3 L Creatinine 0.52 0.53 Est Glomerular Filtrat Rate mL/min > 60 > 60 Glucose Level 129 131 Calcium Level 8.3 L 8.3 L Immature Granulocytes % 0.200 Immature Granulocytes # 0.020 Total Bilirubin 0.4 Direct Bilirubin 0.00 Indirect Bilirubin 0.4 Aspartate Amino Transf (AST/SGOT) 20 Alanine Aminotransferase (ALT/SGPT) 34 Alkaline Phosphatase 44 Total Protein 5.4 L Albumin 2.7 L Globulin 2.70 Albumin/Globulin Ratio 1.00 Medications Medication Current Medications IV Flush (NS 3 ml) 3 ml PER PROTOCOL IV ; Start 10/05/18 at 21:30 Ondansetron HCl (Zofran Inj) 4 mg Q6H PRN IV NAUSEA/VOMITING; Start 10/05/18 at 21:30 Potassium Chloride/Dextrose/ Sod Cl 1,000 ml @ 50 mls/hr Q20H IV Last a dministered on 10/08/18at 04:28; Admin Dose 50 MLS/HR; Start 10/06/18 at 16:00 Famotidine (Pepcid) 20 mg Q12 PO Last administered on 10/08/18at 08:27; Admin Dose 20 MG; Start 10/06/18 at 21:00 Hydromorphone HCl (Dilaudid) 0.4 mg Q2H PRN IV .PAIN 1-5; Start 10/07/18 at 17:30; Stop 10/08/18 at 15:41 Hydromorphone HCl (Dilaudid) 0.6 mg Q2H PRN IV .PAIN 6-10; Start 10/07/18 at 17:30; Stop 10/08/18 at 15:41 Diphenhydramine HCl (Benadryl) 25 mg Q4H PRN IV .PRURITUS Last administered on 10/07/18at 22:07; Admin Dose 25 MG; Start 10/07/18 at 17:30; Stop 10/08/18 at 15:41 Nalbuphine HCl (Nubain) 5 mg Q4H PRN IV .PRURITUS; Start 10/07/18 at 17:30; Stop 10/08/18 at 15:41 Ondansetron HCl (Zofran Inj) 4 mg Q6H PRN IV .NAUSEA/VOMITING; Start 10/07/18 at 17:30; Stop 10/08/18 at 15:41 Naloxone HCl (Narcan) 0.2 mg Q2M PRN IV .RESP RATE; Start 10/07/18 at 17:30; Stop 10/08/18 at 15:41 Miscellaneous Information (* Miscellaneous Pharmacy Order) DURAMORPH: 0.2 MG SPI... GIVEN NEURAXIAL XX ; Start 10/07/18 at 17:30; Stop 10/08/18 at 15:41 Acetaminophen (Tylenol Tab) 1,000 mg Q6H PRN PO MILD PAIN(1-3)OR ELEVATED TEMP; Start 10/07/18 at 18:00 Enoxaparin Sodium (Lovenox) 30 mg DAILY@07 SC Last administered on 10/08/18at 06:35; Admin Dose 30 MG; Start 10/08/18 at 07:00 Cefazolin Sodium/ Dextrose 50 ml @ 100 mls/hr Q8H IVPB Last administered on 10/08/18at 04:27; Admin Dose 100 MLS/HR; Start 10/07/18 at 20:00; Stop 10/08/18 at 12:29 Metronidazole 100 ml @ 100 mls/hr Q8H IVPB Last administered on 10/08/18at 05:31; Admin Dose 100 MLS/HR; Start 10/07/18 at 20:30; Stop 10/08/18 at 13:29 Ketorolac Tromethamine (Toradol) 30 mg Q6H IV Last administered on 10/08/18at 09:27; Admin Dose 30 MG; Start 10/08/18 at 09:00; Stop 10/11/18 at 15:41 APRIL QUIJANO NP Oct 08, 2018 10:23
--- NOTE | 2018-10-08 13:51 | CONS ---
Consultation Date/Type/Reason Admit Date/Time October 05, 2018 Past Medical History Medical History: no pertinent history Home Meds Discontinued Reported Medications [None] No Conflict Check 10/04/18 Multivit/Min/Fol Ac/Iron/Pren* ( S*) 1 Tab Tab, 1 TAB PO DAILY, TAB 09/19/16 Medications Current Medications IV Flush (NS 3 ml) 3 ml PER PROTOCOL IV ; Start 10/05/18 at 21:30 Ondansetron HCl (Zofran Inj) 4 mg Q6H PRN IV NAUSEA/VOMITING; Start 10/05/18 at 21:30 Potassium Chloride/Dextrose/ Sod Cl 1,000 ml @ 50 mls/hr Q20H IV Last administered on 10/08/18at 04:28; Admin Dose 50 MLS/HR; Start 10/06/18 at 16:00 Famotidine (Pepcid) 20 mg Q12 PO Last administered on 10/08/18at 08:27; Admin Dose 20 MG; Start 10/06/18 at 21:00 Hydromorphone HCl (Dilaudid) 0.4 mg Q2H PRN IV .PAIN 1-5; Start 10/07/18 at 17:30; Stop 10/08/18 at 15:41 Hydromorphone HCl (Dilaudid) 0.6 mg Q2H PRN IV .PAIN 6-10; Start 10/07/18 at 17:30; Stop 10/08/18 at 15:41 Diphenhydramine HCl (Benadryl) 25 mg Q4H PRN IV .PRURITUS Last administered on 10/07/18at 22:07; Admin Dose 25 MG; Start 10/07/18 at 17:30; Stop 10/08/18 at 15:41 Nalbuphine HCl (Nubain) 5 mg Q4H PRN IV .PRURITUS; Start 10/07/18 at 17:30; Stop 10/08/18 at 15:41 Ondansetron HCl (Zofran Inj) 4 mg Q6H PRN IV .NAUSEA/VOMITING; Start 10/07/18 at 17:30; Stop 10/08/18 at 15:41 Naloxone HCl (Narcan) 0.2 mg Q2M PRN IV .RESP RATE; Start 10/07/18 at 17:30; Stop 10/08/18 at 15:41 Miscellaneous Information (* Miscellaneous Pharmacy Order) DURAMORPH: 0.2 MG SPI... GIVEN NEURAXIAL XX ; Start 10/07/18 at 17:30; Stop 10/08/18 at 15:41 Acetaminophen (Tylenol Tab) 1,000 mg Q6H PRN PO MILD PAIN(1-3)OR ELEVATED TEMP; Start 10/07/18 at 18:00 Enoxaparin Sodium (Lovenox) 30 mg DAILY@07 SC Last administered on 10/08/18at 06:35; Admin Dose 30 MG; Start 10/08/18 at 07:00 Ketorolac Tromethamine (Toradol) 30 mg Q6H IV Last administered on 10/08/18at 09:27; Admin Dose 30 MG; Start 10/08/18 at 09:00; Stop 10/11/18 at 15:41 Allergies: Coded Allergies: No Known Allergy (Unverified , 10/05/18) Past Surgical History Past Surgical Hx: other (cesarian section 2 years ago) Social History Alcohol Use: none Smoking Status: Never smoker Drug Use: none Exam/Review of Systems Exam Vitals Vital Signs Date Temp Pulse Resp B/P (MAP) Pulse Ox O2 O2 Flow FiO2 Time Delivery Rate 10/08/18 97.5 61 17 92/54 (67) 98 08:26 10/08/18 Room Air 02:50 10/07/18 6.0 18:01 Intake and Output 10/07/18 10/07/18 10/08/18 1515:00 23:00 07:00 IntakeIntake Total 725 ml 2460 ml 575 ml OutputOutput Total 100 ml 1100 ml BalanceBalance 725 ml 2360 ml -525 ml Results Result Diagram: 10/08/18 0429 10/08/18 0429 Results 24hrs Laboratory Tests Test 10/07/18 18:32 10/08/18 04:29 White Blood Count 7.9 # 8.3 Red Blood Count 4.11 L 3.60 L Hemoglobin 11.1 L 9.7 L Hematocrit 34.9 L 30.2 L Mean Corpuscular Volume 84.9 83.9 Mean Corpuscular Hemoglobin 27.0 L 26.9 L Mean Corpuscular Hemoglobin Concent 31.8 L 32.1 Red Cell Distribution Width 13.2 12.8 Platelet Count 230 232 Mean Platelet Volume 10.0 10.1 Neutrophils % 80.1 H 87.8 H Lymphocytes % 16.3 7.8 L Monocytes % 1.9 4.1 Eosinophils % 1.0 0.0 Basophils % 0.4 0.1 Nucleated Red Blood Cells % 0.0 0.0 Neutrophils # 6.3 7.2 Lymphocytes # 1.3 0.6 L Monocytes # 0.2 L 0.3 Eosinophils # 0.1 0.0 Basophils # 0.0 0.0 Nucleated Red Blood Cells # 0.0 0.0 Sodium Level 140 138 Potassium Level 3.4 L 4.1 Chloride Level 109 108 Carbon Dioxide Level 26 26 Anion Gap 5 4 L Blood Urea Nitrogen 3 L 3 L Creatinine 0.52 0.53 Est Glomerular Filtrat Rate mL/min > 60 > 60 Glucose Level 129 131 Calcium Level 8.3 L 8.3 L Immature Granulocytes % 0.200 Immature Granulocytes # 0.020 Total Bilirubin 0.4 Direct Bilirubin 0.00 Indirect Bilirubin 0.4 Aspartate Amino Transf (AST/SGOT) 20 Alanine Aminotransferase (ALT/SGPT) 34 Alkaline Phosphatase 44 Total Protein 5.4 L Albumin 2.7 L Globulin 2.70 Albumin/Globulin Ratio 1.00 Medications Medication Current Medications IV Flush (NS 3 ml) 3 ml PER PROTOCOL IV ; Start 10/05/18 at 21:30 Ondansetron HCl (Zofran Inj) 4 mg Q6H PRN IV NAUSEA/VOMITING; Start 10/05/18 at 21:30 Potassium Chloride/Dextrose/ Sod Cl 1,000 ml @ 50 mls/hr Q20H IV Last administered on 10/08/18at 04:28; Admin Dose 50 MLS/HR; Start 10/06/18 at 16:00 Famotidine (Pepcid) 20 mg Q12 PO Last administered on 10/08/18at 08:27; Admin Dose 20 MG; Start 10/06/18 at 21:00 Hydromorphone HCl (Dilaudid) 0.4 mg Q2H PRN IV .PAIN 1-5; Start 10/07/18 at 17:30; Stop 10/08/18 at 15:41 Hydromorphone HCl (Dilaudid) 0.6 mg Q2H PRN IV .PAIN 6-10; Start 10/07/18 at 17:30; Stop 10/08/18 at 15:41 Diphenhydramine HCl (Benadryl) 25 mg Q4H PRN IV .PRURITUS Last administered on 10/07/18at 22:07; Admin Dose 25 MG; Start 10/07/18 at 17:30; Stop 10/08/18 at 15:41 Nalbuphine HCl (Nubain) 5 mg Q4H PRN IV .PRURITUS; Start 10/07/18 at 17:30; Stop 10/08/18 at 15:41 Ondansetron HCl (Zofran Inj) 4 mg Q6H PRN IV .NAUSEA/VOMITING; Start 10/07/18 at 17:30; Stop 10/08/18 at 15:41 Naloxone HCl (Narcan) 0.2 mg Q2M PRN IV .RESP RATE; Start 10/07/18 at 17:30; Stop 10/08/18 at 15:41 Miscellaneous Information (* Miscellaneous Pharmacy Order) DURAMORPH: 0.2 MG SPI... GIVEN NEURAXIAL XX ; Start 10/07/18 at 17:30; Stop 10/08/18 at 15:41 Acetaminophen (Tylenol Tab) 1,000 mg Q6H PRN PO MILD PAIN(1-3)OR ELEVATED TEMP; Start 10/07/18 at 18:00 Enoxaparin Sodium (Lovenox) 30 mg DAILY@07 SC Last administered on 10/08/18at 06:35; Admin Dose 30 MG; Start 10/08/18 at 07:00 Ketorolac Tromethamine (Toradol) 30 mg Q6H IV Last administered on 10/08/18at 09:27; Admin Dose 30 MG; Start 10/08/18 at 09:00; Stop 10/11/18 at 15:41 SARAH VELASQUEZ Oct 08, 2018 13:51
[2018-10-08 14:00] VITALS: BP 102/56; PULSE 60; RESP 18
--- NOTE | 2018-10-08 15:57 | CONS ---
Assessment/Plan Assessment/Plan Assessment/Plan (Daily) #Colorectal adenocarcinoma -this was described as a lesion 12 cm from the anal verge and proven to be a moderately differentiated adenocarcinoma of the colon. Given its location, it could be considered a high rectal lesion. - Dr Ontiveros had an extensive discussion with colorectal surgeon Dr. Agustin who noted how mobile the mass is since it is causing intussusception and prolapse through the anus. Given its mobility it will be very difficult to given neoadjuvant chemotherapy and radiation and target this mobile lesion. In addition, she has tremendous pain from this lesion and the intussusception. Dr Ontiveros therefore agrees with proceed with LAR surgery and will discuss adjuvant chemotherapy based on the results of the surgery. Family at bed side- all Qs answered. Patient seen in collaboration with Dr Ontiveros. Dw staff Consultation Date/Type/Reason Admit Date/Time Oct 05, 2018 at 21:01 Initial Consult Date 10/06/18 Type of Consult HEM/ONC Reason for Consultation Colorectal adenocarcinoma Requesting Provider: VICTORINO SIBLEY Date/Time of Note DATE: 10/08/18 TIME: 13:51 24 HR Interval Summary Constitutional: requiring O2 Detailed Summary Eyes: no complaints ENT: no complaints Respiratory: no complaints Cardiovascular: no complaints Gastrointestinal: no complaints Genitourinary: no complaints Musculoskeletal: no complaints Skin: no complaints Neurologic: no complaints Endocrine: no complaints Lymphatic: no complaints Psychological: nl mood/affect Immunologic: no complaints Exam/Review of Systems Exam Vitals Vital Signs Date Temp Pulse Resp B/P (MAP) Pulse Ox O2 O2 Flow FiO2 Time Delivery Rate 10/08/18 97.5 61 17 92/54 (67) 98 08:26 10/08/18 Room Air 02:50 10/07/18 6.0 18:01 Intake and Output 10/07/18 10/07/18 10/08/18 1515:00 23:00 07:00 IntakeIntake Total 725 ml 2460 ml 575 ml OutputOutput Total 100 ml 1100 ml BalanceBalance 725 ml 2360 ml -525 ml Constitutional: alert, well developed Psych: nl mood/affect Eyes: nl lids, nl sclera ENMT: nl external ears & nose Neck: non-tender Respiratory: clear to auscultation Cardiovascular: nl pulses, other (s1s2) Gastrointestinal: soft, non-tender Musculoskeletal: nl extremities to inspection Neurological: nl mental status, nl speech Skin: other (erythema RUE) Results Result Diagram: 10/08/18 0429 10/08/18 0429 Results 24hrs Laboratory Tests Test 10/07/18 18:32 10/08/18 04:29 White Blood Count 7.9 # 8.3 Red Blood Count 4.11 L 3.60 L Hemoglobin 11.1 L 9.7 L Hematocrit 34.9 L 30.2 L Mean Corpuscular Volume 84.9 83.9 Mean Corpuscular Hemoglobin 27.0 L 26.9 L Mean Corpuscular Hemoglobin Concent 31.8 L 32.1 Red Cell Distribution Width 13.2 12.8 Platelet Count 230 232 Mean Platelet Volume 10.0 10.1 Neutrophils % 80.1 H 87.8 H Lymphocytes % 16.3 7.8 L Monocytes % 1.9 4.1 Eosinophils % 1.0 0.0 Basophils % 0.4 0.1 Nucleated Red Blood Cells % 0.0 0.0 Neutrophils # 6.3 7.2 Lymphocytes # 1.3 0.6 L Monocytes # 0.2 L 0.3 Eosinophils # 0.1 0.0 Basophils # 0.0 0.0 Nucleated Red Blood Cells # 0.0 0.0 Sodium Level 140 138 Potassium Level 3.4 L 4.1 Chloride Level 109 108 Carbon Dioxide Level 26 26 Anion Gap 5 4 L Blood Urea Nitrogen 3 L 3 L Creatinine 0.52 0.53 Est Glomerular Filtrat Rate mL/min > 60 > 60 Glucose Level 129 131 Calcium Level 8.3 L 8.3 L Immature Granulocytes % 0.200 Immature Granulocytes # 0.020 Total Bilirubin 0.4 Direct Bilirubin 0.00 Indirect Bilirubin 0.4 Aspartate Amino Transf (AST/SGOT) 20 Alanine Aminotransferase (ALT/SGPT) 34 Alkaline Phosphatase 44 Total Protein 5.4 L Albumin 2.7 L Globulin 2.70 Albumin/Globulin Ratio 1.00 Medications Medication Current Medications IV Flush (NS 3 ml) 3 ml PER PROTOCOL IV ; Start 10/05/18 at 21:30 Ondansetron HCl (Zofran Inj) 4 mg Q6H PRN IV NAUSEA/VOMITING; Start 10/05/18 at 21:30 Potassium Chloride/Dextrose/ Sod Cl 1,000 ml @ 50 mls/hr Q20H IV Last administered on 10/08/18at 04:28; Admin Dose 50 MLS/HR; Start 10/06/18 at 16:00 Famotidine (Pepcid) 20 mg Q12 PO Last administered on 10/08/18at 08:27; Admin Dose 20 MG; Start 10/06/18 at 21:00 Acetaminophen (Tylenol Tab) 1,000 mg Q6H PRN PO MILD PAIN(1-3)OR ELEVATED TEMP; Start 10/07/18 at 18:00 Enoxaparin Sodium (Lovenox) 30 mg DAILY@07 SC Last administered on 10/08/18at 06:35; Admin Dose 30 MG; Start 10/08/18 at 07:00 Ketorolac Tromethamine (Toradol) 30 mg Q6H IV Last administered on 10/08/18at 15:38; Admin Dose 30 MG; Start 10/08/18 at 09:00; Stop 10/11/18 at 15:41 SARAH VELASQUEZ Oct 08, 2018 15:57
[2018-10-08 19:10] VITALS: BP 112/65; PULSE 89; RESP 18
[2018-10-09] MEDS ORDERED: CEPASTAT LOZENGE MT PRN (01:00)
[2018-10-09 02:02] VITALS: BP 110/53; PULSE 73; RESP 18
[2018-10-09] MEDS: KETOROLAC 30 MG INJ IV SCH ×2 (03:24→08:41)
[2018-10-09] MEDS: D5-NS + KCL 20 MEQ 1,000 ML IV SCH (06:38)
[2018-10-09] MEDS: ENOXAPARIN 30 MG/0.3 ML SYG SC SCH (06:46)
[2018-10-09 07:12] VITALS: BP 110/58; PULSE 62; RESP 17
--- NOTE | 2018-10-09 08:22 | PN ---
Date/Time of Note Date/Time of Note DATE: 10/09/18 TIME: 08:18 Assessment/Plan Lines/Catheters IV Catheter Type (from Nrsg): Peripheral IV Reid in Place (from Nrsg): Yes Assessment/Plan Chief Complaint/Hosp Course Sigmoid colon cancer Assessment/Plan POD#2 s/p sigmoid colectomy for a sigmoid colon cancer. Doing well. She is ambulating, tolerating a diet and her pain is under very good control. Pathology report is pending. 1. Okay to discharge home on a low residue diet. She can wash her wound. No lifting >5lbs for 6 weeks. 2. Follow up with Dr. Agustin in 1 week. Subjective 24 Hr Interval Summary Constitutional: improved, ambulates, flatus Feeding: advancing diet Pain Control: well controlled Exam/Review of Systems Vital Signs Vitals Vital Signs Date Temp Pulse Resp B/P (MAP) Pulse Ox O2 O2 Flow FiO2 Time Delivery Rate 10/09/18 98.5 62 17 110/58 97 07:12 (75) 10/08/18 Room Air 02:50 10/07/18 6.0 18:01 Intake and Output 10/08/18 10/08/18 10/09/18 1414:59 22:59 06:59 IntakeIntake Total 150 ml 980 ml 400 ml BalanceBalance 150 ml 980 ml 400 ml Exam Constitutional: alert, oriented Gastrointestinal: soft, surgical scars (healing well), tender (minimal incisional TTP) Results Result Diagram: 10/09/18 0429 10/09/18 0429 ANDRE AGUSTIN MD Oct 09, 2018 08:22
[2018-10-09] MEDS ORDERED: HYDROCODONE/APAP (5/325) TAB PO PRN (08:30)
[2018-10-09] MEDS: FAMOTIDINE 20 MG TAB PO SCH (08:40)
[2018-10-09] MEDS ORDERED: HYDR-3601 PO (08:43)
--- NOTE | 2018-10-09 08:46 | PDOCDIS ---
Discharge Instructions CONDITION Qmmax1Ct Patient Condition: [id number] Stable HOME CARE INSTRUCTIONS: [id number] Special Diet: [id number] Low residue diet ACTIVITY: [id number] Activity Restrictions: [id number] Slowly Increase Activity Rest between Activity Avoid heavy lifting Avoid Heavy Housework FOLLOW UP/APPOINTMENTS Follow-up Plan 1. Tam Agustin MD Specialty: Colon & Rectal Surgery Office Address [id number] [place] [address], [address] [place] [address] Office OTHER ORDERS: Other Orders: 1. Take a low residue diet as tolerated. 2. Keep incisions clean and dry. May shower. Avoid tub baths and swimming for 2 weeks. Use mild soap and pat dry the incisions. 3. Take medications as needed for pain. 4. Call the surgeon or go to the nearest ER if you have severe abdominal pain despite pain medications. 5. Call the surgeon or go to the nearest ER if you notice any bleeding or secretions coming out of the incision sites. Also call the surgeon if you notice any blood in stool, if you have persistent fevers, or any other unusual signs or symptoms. 6. Follow-up with the surgeon [Dr. Agustin] in 7 days for incision check. 7. Avoid heavy lifting [more than 5 pounds] for 6 weeks. APRIL QUIJANO NP Oct 09, 2018 08:46
--- NOTE | 2018-10-09 08:54 | DS ---
Date/Time of Note Date/Time of Note DATE: 10/09/18 TIME: 08:52 Discharge Summary Admission/Discharge Info Admit Date/Time Oct 05, 2018 at 21:01 Discharge Date/Time Discharge Diagnosis 1. Adenocarcinoma of the colon. Status post open sigmoidectomy and end-to-end anastomosis on 10/07/2018. 2. Normocytic anemia. Consults 1. Ankit Agustin MD, Colorectal Surgery. 2. Marie Ontiveros MD, Oncology. Procedures OPERATIVE REPORT DATE OF OPERATION: 10/07/2018 PREPROCEDURE DIAGNOSIS: Upper rectal cancer. POSTPROCEDURE DIAGNOSIS: Mid-sigmoid colon cancer. PROCEDURE PERFORMED: Open sigmoidectomy. SURGEON: Dr. Tam Agustin. AUCTION BLOCK CLERK: Dr. Alejandro Hodges. TYPE OF ANESTHESIA: General endotracheal anesthesia with spinal anesthetic. ANESTHESIOLOGIST: Dr. Solis. Hx of Present Illness This is a 38-year-old female who presented to the emergency department complaining of abdominal pain status post colonoscopy with colonoscopy done on 10/04/2018 as outpatient showing a large sigmoid tumor with pathology showing moderately differentiated adenocarcinoma. Therefore, the patient was admitted to inpatient setting for further treatment and evaluation. Hospital Course CT scan of the abdomen and pelvis that was done in the emergency room was showing distal colonic intussusception with telescoping of the distal sigmoid colon into the rectum with a suspected mass of the lead point. Since the patient already has a confirmed neoplasm from her colonoscopy, consult from colorectal surgery and oncology was obtained. The patient was kept n.p.o. She was provided with adequate pain control. The oncologist discussed the case with the colorectal surgeon and they agreed to proceed with lower anterior resection (LAR) since the mass was mobile and it was causing intussusception and prolapse through the anus which makes it very difficult to treat with neoadjuvant chemotherapy and radiation. The patient was taken to the OR on 10/07/2018 and the patient underwent an open sigmoidectomy and end-to-end anastomosis. Postoperatively, the patient was encouraged on frequent ambulation and frequent use of incentive spirometry. The patient was started on a clear liquid diet and the patient's diet was advanced as tolerated to a low residue diet with no significant gastrointestinal symptoms. The patient started having bowel movements. The patient recovered well postoperatively. The patient is an otherwise healthy female with no significant other past medical history. The patient was noticed to have normocytic anemia, most probably secondary to her underlying malignancy. The pa tient was also breast-feeding. Therefore, the patient was pumping and dumping while she was hospitalized. Upon discharge, she may resume breast-feeding her baby however, she was cautioned about using high-dose opioids while breast- feeding. The patient had a stable hospital course. The patient will follow up with outpatient colorectal surgeon in 1 week. The patient will follow up with outpatient oncology if indicated as per the recommendations of colorectal surgeon. Discharge Instructions 1. Take a low residue diet as tolerated. 2. Keep incisions clean and dry. May shower. Avoid tub baths and swimming for 2 weeks. Use mild soap and pat dry the incisions. 3. Take medications as needed for pain. 4. Call the surgeon or go to the nearest ER if you have severe abdominal pain despite pain medications. 5. Call the surgeon or go to the nearest ER if you notice any bleeding or secretions coming out of the incision sites. Also call the surgeon if you notice any blood in stool, if you have persistent fevers, or any other unusual signs or symptoms. 6. Follow-up with the surgeon [Dr. Agustin] in 7 days for incision check. 7. Avoid heavy lifting [more than 5 pounds] for 6 weeks. The patient verbalized understanding of her discharge instructions. At this time I would like to thank all the consultants for seeing the patient, doing the necessary procedures, and providing clinical recommendations. The patient was seen in collaboration with Dr. Torres. Home Meds Active Scripts Hydrocodone Bit-Acetaminophen (Hydrocodone Bit-APAP) 5-325MG Tablet, 1 TAB PO Q4H PRN for MODERATE PAIN LEVEL 4-6, #15 TAB Prov:APRIL QUIJANO NP 10/09/18 Discontinued Reported Medications [None] No Conflict Check 10/04/18 Multivit/Min/Fol Ac/Iron/Pren* ( S*) 1 Tab Tab, 1 TAB PO DAILY, TAB 09/19/16 Follow-up Plan 1. Tam Agustin MD Specialty: Colon & Rectal Surgery Office Address [address] [facility] [address] [place] [address] Office Primary Care Provider Not On Staff Doctor Time spent on discharge: > 30 minutes Pending Labs Laboratory Tests Test 10/09/18 04:29 White Blood Count 5.2 10^3/ul (4.8-10.8) Red Blood Count 3.46 10^6/ul (4.20-5.40) Hemoglobin 9.3 g/dl (12.0-16.0) Hematocrit 29.8 % (37.0-47.0) Mean Corpuscular Volume 86.1 fl (82.0-101.0) Mean Corpuscular Hemoglobin 26.9 pg (29.0-33.0) Mean Corpuscular Hemoglobin Concent 31.2 g/dl (32.0-37.0) Red Cell Distribution Width 13.4 % (11.5-14.5) Platelet Count 215 10^3/UL (140-415) Mean Platelet Volume 10.2 fl (7.4-10.4) Immature Granulocytes % 0.200 % (0.001-0.429) Neutrophils % 53.8 % (39.0-77.0) Lymphocytes % 37.8 % (15.0-51.0) Monocytes % 6.6 % (0.0-11.0) Eosinophils % 1.0 % (0.0-7.0) Basophils % 0.6 % (0.0-2.0) Nucleated Red Blood Cells % 0.0 /100WBC (0.0-0.0) Immature Granulocytes # 0.010 10^3/ul (0.0-0.031) Neutrophils # 2.8 10^3/ul (1.6-7.5) Lymphocytes # 2.0 10^3/ul (0.8-2.9) Monocytes # 0.3 10^3/ul (0.3-0.9) Eosinophils # 0.1 10^3/ul (0.0-0.5) Basophils # 0.0 10^3/ul (0.0-0.1) Nucleated Red Blood Cells # 0.0 10^3/ul (0.0-0.0) Sodium Level 140 mmol/L (135-144) Potassium Level 3.7 mmol/L (3.5-5.1) Chloride Level 110 mmol/L (97-110) Carbon Dioxide Level 26 mmol/L (21-31) Anion Gap 4 (5-13) Blood Urea Nitrogen 7 mg/dl (7-20) Creatinine 0.59 mg/dl (0.44-1.00) Est Glomerular Filtrat Rate mL/min > 60 mL/min (>60) Glucose Level 95 mg/dl (70-220) Calcium Level 8.0 mg/dl (8.4-10.2) Phosphorus Level 2.9 mg/dl (2.5-4.9) Magnesium Level 1.7 mg/dl (1.7-2.5) Total Bilirubin 0.4 mg/dl (0.2-1.3) Direct Bilirubin 0.00 mg/dl (0.00-0.20) Indirect Bilirubin 0.4 mg/dl (0-1.1) Aspartate Amino Transf (AST/SGOT) 25 IU/L (15-46) Alanine Aminotransferase (ALT/SGPT) 40 IU/L (13-69) Alkaline Phosphatase 48 IU/L (42-121) Total Protein 5.3 g/dl (6.1-8.1) Albumin 2.6 g/dl (3.3-4.9) Globulin 2.70 g/dl (1.3-3.2) Albumin/Globulin Ratio 0.96 APRIL QUIJANO NP Oct 09, 2018 08:54
--- NOTE | 2018-10-09 12:58 | CONS ---
Assessment/Plan Assessment/Plan Assessment/Plan (Daily) #Colorectal adenocarcinoma vs Sigmoid colon cancer- felecia Agustin who confirmed patient has Sigmoid colon cancer - described as a lesion 12 cm from the anal verge and proven to be a moderately differentiated adenocarcinoma of the colon. Given its location, it could be considered a high rectal lesion. - Dr Ontiveros had an extensive discussion with colorectal surgeon Dr. Agustin who noted how mobile the mass is since it is causing intussusception and prolapse through the anus. Given its mobility it will be very difficult to given neoadjuvant chemotherapy and radiation and target this mobile lesion. In addition, she has tremendous pain from this lesion and the intussusception. Dr Ontiveros therefore agrees with proceed with LAR surgery and will discuss adjuvant chemotherapy based on the results of the surgery. Family at bed side- all Qs answered. Patient seen in collaboration with Dr Ontiveros. Dw staff Consultation Date/Type/Reason Admit Date/Time Oct 05, 2018 at 21:01 Initial Consult Date 10/06/18 Type of Consult HEM/ONC Requesting Provider: VICTORINO SIBLEY Date/Time of Note DATE: 10/09/18 TIME: 0800 24 HR Interval Summary Free Text/Dictation no events overnight. Constitutional: improved Detailed Summary Eyes: no complaints ENT: no complaints Respiratory: no complaints Cardiovascular: no complaints Gastrointestinal: no complaints Genitourinary: no complaints Musculoskeletal: no complaints Skin: no complaints Neurologic: no complaints Lymphatic: no complaints Psychological: nl mood/affect Immunologic: no complaints Exam/Review of Systems Exam Vitals Vital Signs Date Temp Pulse Resp B/P (MAP) Pulse Ox O2 O2 Flow FiO2 Time Delivery Rate 10/09/18 98.5 62 17 110/58 97 07:12 (75) 10/08/18 Room Air 02:50 10/07/18 6.0 18:01 Intake and Output 10/08/18 10/08/18 10/09/18 1515:00 23:00 07:00 IntakeIntake Total 150 ml 980 ml 400 ml BalanceBalance 150 ml 980 ml 400 ml Constitutional: alert, oriented, well developed Psych: nl mood/affect Head: atraumatic Eyes: nl lids, nl sclera ENMT: nl external ears & nose Neck: non-tender Respiratory: clear to auscultation Cardiovascular: nl pulses, other (s1s2) Gastrointestinal: soft, non-tender Musculoskeletal: nl extremities to inspection Extremities: normal pulses Neurological: nl mental status, nl speech Skin: nl turgor Lymph: nontender Results Result Diagram: 10/09/18 0429 10/09/18 0429 Results 24hrs Laboratory Tests Test 10/09/18 04:29 White Blood Count 5.2 # Red Blood Count 3.46 L Hemoglobin 9.3 L Hematocrit 29.8 L Mean Corpuscular Volume 86.1 Mean Corpuscular Hemoglobin 26.9 L Mean Corpuscular Hemoglobin Concent 31.2 L Red Cell Distribution Width 13.4 Platelet Count 215 Mean Platelet Volume 10.2 Immature Granulocytes % 0.200 Neutrophils % 53.8 Lymphocytes % 37.8 Monocytes % 6.6 Eosinophils % 1.0 Basophils % 0.6 Nucleated Red Blood Cells % 0.0 Immature Granulocytes # 0.010 Neutrophils # 2.8 Lymphocytes # 2.0 Monocytes # 0.3 Eosinophils # 0.1 Basophils # 0.0 Nucleated Red Blood Cells # 0.0 Sodium Level 140 Potassium Level 3.7 Chloride Level 110 Carbon Dioxide Level 26 Anion Gap 4 L Blood Urea Nitrogen 7 Creatinine 0.59 Est Glomerular Filtrat Rate mL/min > 60 Glucose Level 95 Calcium Level 8.0 L Phosphorus Level 2.9 Magnesium Level 1.7 Total Bilirubin 0.4 Direct Bilirubin 0.00 Indirect Bilirubin 0.4 Aspartate Amino Transf (AST/SGOT) 25 Alanine Aminotransferase (ALT/SGPT) 40 Alkaline Phosphatase 48 Total Protein 5.3 L Albumin 2.6 L Globulin 2.70 Albumin/Globulin Ratio 0.96 SARAH VELASQUEZ Oct 09, 2018 12:58
== END 2018-10-09 10:40 | disposition home or self-care (01) | DRG 330 ==
LOC: FTE 11:53 → MS1 21:01
PROVIDERS: ADMIT Family Medicine; ATTEND Internal Medicine
PROC: 0DBN0ZZ Excision of Sigmoid Colon, Open Approach (ICD-10-PCS; principal; 2018-10-07 15:30)
DX: C18.7 Malignant neoplasm of sigmoid colon (principal); K56.1 Intussusception; E87.6 Hypokalemia; D64.9 Anemia, unspecified; K63.4 Enteroptosis
CPT/HCPCS: 36415; 71045; 74177; 80048; 80053; 80061; 81001; 81025; 83036; 83690; 83735; 84100; 84443; 85025; 85610; 85730; 86850; 86900; 86901; 87086; 88309; 93005; 96374; 96375; 96376; J0690; J1100; J1170; J1200; J1650; J1885; J2250; J2270; J2274; J2405; J2710; J3010; J3480; J7030; Q9967

== ENCOUNTER 2018-10-22 13:21 | Emergency (ER) | payer BC ==
[~2018-10-22] VITALS: Ht 170.2 cm; Wt 75.4 kg
[~2018-10-22 13:21] MED LIST changes: +HYDR-3601 PO; +MAGN400O19 PO; +NA P133E5 RC; -PRENAT PO
[2018-10-22 13:23] VITALS: BP 124/73; PULSE 80; RESP 18; Ht 170.2 cm; Wt 75.4 kg
--- NOTE | 2018-10-22 14:35 | ERD ---
ER Documentation Chief Complaint Chief Complaint had rectal surgery for colon ca, bleeding today HPI 2-year-old female with colorectal cancer not on chemotherapy or radiation. 2 weeks ago had resection. Patient has been drinking beet juice for the past week the past 2 days has noticed red-tinged to her stools. Denies any abdominal pain. Denies any rectal bleeding outside of discoloration of her stools. Denies any nausea or vomiting. No lightheadedness or weakness or shortness of breath. No fevers or chills. No diarrhea, constipation ROS All systems reviewed and are negative except as per history of present illness. Medications Home Meds Discontinued Scripts Hydrocodone Bit-Acetaminophen (Hydrocodone Bit-APAP) 5-325MG Tablet, 1 TAB PO Q4H PRN for MODERATE PAIN LEVEL 4-6, #15 TAB Prov:APRIL QUIJANO [employer] 10/09/18 Allergies Allergies: Coded Allergies: No Known Allergy (Unverified , 10/22/18) PMhx/Soc History of Surgery: Yes () Anesthesia Reaction: No Hx Neurological Disorder: No Hx Respiratory Disorders: No Hx Cardiac Disorders: No Hx Psychiatric Problems: No Hx Miscellaneous Medical Probl: No Hx Alcohol Use: No Hx Substance Use: No Hx Tobacco Use: No Physical Exam Vitals Vital Signs Date Temp Pulse Resp B/P (MAP) Pulse Ox O2 O2 Flow FiO2 Time Delivery Rate 10/22/18 98.1 80 18 124/73 99 13:23 (90) Physical Exam Const: No acute distress Head: Atraumatic Eyes: Normal Conjunctiva ENT: Normal External Ears, Nose and Mouth. Neck: Full range of motion. No meningismus. Resp: Clear to auscultation bilaterally Cardio: Regular rate and rhythm, no murmurs Abd: Soft, non tender, non distended. Normal bowel sounds Skin: No petechiae or rashes Back: No midline or flank tenderness Ext: No cyanosis, or edema Neur: Awake and alert Psych: Normal Mood and Affect Rectal exam chaperoned by nurse. No bright red blood, no hemorrhoids no fissures. Result Diagram: 10/22/18 1437 10/22/18 1437 Results 24 hrs Laboratory Tests Test 10/22/18 14:24 10/22/18 14:37 10/22/18 14:49 Stool Occult Blood NEGATIVE White Blood Count 6.8 10^3/ul Red Blood Count 4.42 10^6/ul Hemoglobin 11.9 g/dl Hematocrit 37.8 % Mean Corpuscular Volume 85.5 fl Mean Corpuscular Hemoglobin 26.9 pg Mean Corpuscular 31.5 g/dl Hemoglobin Concent Red Cell Distribution Width 13.2 % Platelet Count 262 10^3/UL Mean Platelet Volume 10.5 fl Immature Granulocytes % 0.100 % Neutrophils % 58.3 % Lymphocytes % 34.7 % Monocytes % 4.4 % Eosinophils % 1.8 % Basophils % 0.7 % Nucleated Red Blood Cells % 0.0 /100WBC Immature Granulocytes # 0.010 10^3/ul Neutrophils # 4.0 10^3/ul Lymphocytes # 2.4 10^3/ul Monocytes # 0.3 10^3/ul Eosinophils # 0.1 10^3/ul Basophils # 0.1 10^3/ul Nucleated Red Blood Cells # 0.0 10^3/ul Sodium Level 142 mmol/L Potassium Level 3.8 mmol/L Chloride Level 107 mmol/L Carbon Dioxide Level 28 mmol/L Anion Gap 7 Blood Urea Nitrogen 8 mg/dl Creatinine 0.69 mg/dl Est Glomerular Filtrat Rate mL/min > 60 mL/min Glucose Level 86 mg/dl Calcium Level 9.5 mg/dl POC Beta HCG, Qualitative NEGATIVE Procedures/MDM Patient here for evaluation for possible GI bleed after surgery for colon cancer. Labs within normal limits hemoglobin uptrending from prior results. Fecal occult blood test negative. No bright red blood per rectum. Vitals within normal limits. At this time low suspicion for actual bleeding. Possibly discoloration secondary to her diet she has been drinking a lot of beet juice. Will evaluate with CT scan as well if this is negative patient will be discharged with follow-up Wednesday. CT negative for any acute changes. Patient asymptomatic will discharge and outpatient follow-up on Wednesday. Departure Diagnosis: Primary Impression: Rectal bleeding Condition: Stable ROSE BARROW MD Oct 22, 2018 14:35
[2018-10-22] MEDS ORDERED: IOHEXOL 300MG/ML 150 ML BTL ONE (15:08)
[2018-10-22] MEDS ORDERED: SOD CHLORIDE 0.9% 100 ML ONE (15:08)
== END 2018-10-22 17:55 | disposition home or self-care (01) ==
LOC: E/R 13:21
DX: K62.5 Hemorrhage of anus and rectum (principal); Z85.038 Personal history of other malignant neoplasm of large intestine
CPT/HCPCS: 36415; 74177; 80048; 81025; 82270; 85025; Q9967; Z7502; Z7610

== ENCOUNTER 2018-11-19 20:50 | Emergency (ER) | payer BC ==
[~2018-11-19] VITALS: Ht 167.6 cm; Wt 72.9 kg
[~2018-11-19 20:50] MED LIST changes: -HYDR-3601 PO
[2018-11-19 21:02] VITALS: Ht 167.6 cm; Wt 72.9 kg
[2018-11-19] MEDS ORDERED: MINERAL OIL 133 ML ENEMA PR ONE (22:30)
[2018-11-19] MEDS ORDERED: IBUPROFEN 600 MG TAB PO ONE (22:30)
[2018-11-19] MEDS: MINERAL OIL 133 ML ENEMA PR ONE ×2 (23:33→23:34)
[2018-11-19 23:34] VITALS: BP 109/74; PULSE 69; RESP 19
== END 2018-11-19 23:36 | disposition home or self-care (01) ==
LOC: E/R 20:50
DX: K62.89 Other specified diseases of anus and rectum (principal); K59.00 Constipation, unspecified; D01.0 Carcinoma in situ of colon
CPT/HCPCS: Z7502; Z7610; 99284